=== PATIENT | male | born 1945 | race Caucasian/White ===

== ENCOUNTER → 2024-01-02 07:23 | Outpatient (REF) | payer MEDICARE, OTHER, SELFPAY ==
[2024-01-02 08:11] LABS: % Basophils 0.9 % (0-2); % Eosinophils 4.1 % (0-6); % Immature Granulocytes 0.3 % (0-0.5); % Lymphocytes 44.3 % (20.5-51.1); % Monocytes 9.2 % (1.7-9.3); % Neutrophils 41.2 % (42.2-75.2); Absolute Basophils 0.1 10^3/uL (0-0.2); Absolute Eosinophils 0.3 10^3/uL (0-0.7); Absolute Lymphocytes 2.9 10^3/uL (1.2-3.4); Absolute Monocytes 0.6 10^3/uL (0.1-0.6); Absolute Neutrophils 2.7 10^3/uL (1.4-6.5); Hematocrit 41.4 % (39.0-52.0); Hemoglobin 13.9 g/dL (13.0-18.0); Mean Corp Hgb Conc. 33.6 g/dL (33.0-37.0); Mean Corpuscular Hgb 30.5 pg (27.0-31.0); Mean Corpuscular Volume 90.8 fL (80.0-94.0); Mean Platelet Volume 10.6 fL (7.4-10.4); Nucleated Red Blood Cells % 0 % (-); Platelet Count 226 10^3/uL (130-400); Red Blood Cell Count 4.56 10^6/uL (4.70-6.10); Red Cell Dist. Width 13.2 % (11.5-14.5); White Blood Cell Count 6.6 10^3/uL (4.8-10.8)
[2024-01-02 08:41] LABS: ALT (SGPT) 19 U/L (0-50); AST (SGOT) 24 U/L (17-59); Albumin 4.3 g/dl (3.5-5.0); Alkaline Phosphatase 57 U/L (38-126); Blood Urea Nitrogen 18 mg/dl (9-20); Calcium 9.5 mg/dl (8.4-10.2); Carbon Dioxide 28 mmol/L (22-30); Chloride 105 mmol/L (98-107); Glucose 95 mg/dl (70-99); HDL Cholesterol 59 mg/dl; LDL Cholesterol, Calculated 73 mg/dl; Potassium 4.5 mmol/L (3.5-5.1); Sodium 137 mmol/L (135-145); Total Bilirubin 0.8 mg/dl (0.2-1.3); Total Cholesterol 146 mg/dl (50-199); Total Protein 7.1 g/dl (6.3-8.2); Triglyceride 72 mg/dl (10-149); Very Low Density Lipoprotein 14 mg/dl (0-30); eGFR > 60.00
[2024-01-02 09:21] LABS: PSA, Total - Screen 4.42 ng/ml (0.0-4.0); TSH Reflex To Free T4 1.57 uIU/ml (0.47-4.68)
== END ==
LOC: REG 07:23
PROVIDERS: ATTENDING PHYSICIAN Internal Medicine
DX: E78.5 Hyperlipidemia, unspecified (principal); Z68.27 Body mass index [BMI] 27.0-27.9, adult; R53.83 Other fatigue; Z12.5 Encounter for screening for malignant neoplasm of prostate
CPT/HCPCS: 36415; 80053; 80061; 84443; 85025; G0103

== ENCOUNTER 2024-01-23 13:47 | Emergency (ER) | payer MEDICARE, OTHER, SELFPAY ==
[2024-01-23 13:54] VITALS: BP 147/79
[2024-01-23 14:14] LABS: % Basophils 0.8 % (0-2); % Immature Granulocytes 0.1 % (0-0.5); % Lymphocytes 40.8 % (20.5-51.1); % Monocytes 7.1 % (1.7-9.3); % Neutrophils 49.2 % (42.2-75.2); Absolute Basophils 0.1 10^3/uL (0-0.2); Absolute Eosinophils 0.2 10^3/uL (0-0.7); Absolute Lymphocytes 3.1 10^3/uL (1.2-3.4); Absolute Monocytes 0.5 10^3/uL (0.1-0.6); Absolute Neutrophils 3.8 10^3/uL (1.4-6.5); Hematocrit 39.7 % (39.0-52.0); Hemoglobin 13.6 g/dL (13.0-18.0); Mean Corp Hgb Conc. 34.3 g/dL (33.0-37.0); Mean Corpuscular Hgb 30.8 pg (27.0-31.0); Mean Platelet Volume 10.2 fL (7.4-10.4); Nucleated Red Blood Cells % 0 % (-); Platelet Count 231 10^3/uL (130-400); Red Blood Cell Count 4.41 10^6/uL (4.70-6.10); Red Cell Dist. Width 13.2 % (11.5-14.5); White Blood Cell Count 7.7 10^3/uL (4.8-10.8)
[2024-01-23 14:28] LABS: ALT (SGPT) 19 U/L (0-50); AST (SGOT) 27 U/L (17-59); Albumin 4.3 g/dl (3.5-5.0); Alkaline Phosphatase 51 U/L (38-126); Blood Urea Nitrogen 15 mg/dl (9-20); Calcium 9.3 mg/dl (8.4-10.2); Carbon Dioxide 27 mmol/L (22-30); Chloride 103 mmol/L (98-107); Glucose 112 mg/dl (70-99); Potassium 3.9 mmol/L (3.5-5.1); Sodium 135 mmol/L (135-145); Total Bilirubin 0.6 mg/dl (0.2-1.3); Total Protein 7.3 g/dl (6.3-8.2); eGFR > 60.00
[2024-01-23 14:36] LABS: Troponin I < 0.012 ng/ml
[2024-01-23 15:54] VITALS: BP 142/71
[2024-01-23 16:00] VITALS: BP 135/74
--- NOTE | 2024-01-23 16:12 | ED.GENMED ---
History of Present Illness
General
Chief Complaint: Chest Problem
Source: patient
Exam Limitations: none
Time Seen by Provider: 01/23/24 16:11
Nursing documentation reviewed up to this point in time: agreed with
Travel History
Have you had any contact with someone who has COVID-19?: No
Do you have any symptoms of coronavirus? Fever > 100 degrees, chills, cough, shortness of breath, sore throat, loss of taste or smell, muscle aches, or headache?: No
History of Present Illness
History of Present Illness:
78-year-old male presents emerged part complaining of a chest pressure/tightness on the left side at 10:30 AM. He was sitting down and began experiencing the chest tightness. He states it has been gradually going away. He was at senior care
visiting his and was directed to the emergency department. He denies any cardiac history. He has never seen a anchorman.
Past History
Past History
ED Past Medical History: Hypercholesterolemia
ED Past Surgical History: Orthopedic
Social History
Tobacco: Non-smoker
Alcohol: Daily
Drug: None
Personal:
Living: alone
Review of Systems
Review of Systems
Allergies reviewed?: Yes
All Other Systems: Not applicable
Constitutional: Reports no symptoms
EENT: Reports no symptoms
Respiratory: Reports no symptoms
Cardiac: Reports chest pain
ABD/GI: Reports no symptoms
: Reports no symptoms
Musculoskeletal: Reports no symptoms
Skin: Reports no symptoms
Neurological: Reports no symptoms
Endocrine: Reports no symptoms
Hematologic/Lymphatic: Reports no symptoms
Psychiatric: Reports no symptoms
Phy Exam
Physical Exam
Physical Exam:
Physical Exam
General: no apparent distress, not acutely ill
Neck: supple. no meningeal signs. normal posterior pharynx
Heart: s1/s2 regular rate and rhythm, no murmur. equal radial
pulses.
HEENT: Pupils equal round reactive to light, EOMI
Lungs: no acute respiratory distress. clear bilaterally
Abdomen: normal bowel sounds. not tender. no CVAT
Neuro: alert and oriented. no focal neurological deficits cranial nerves II through XII intact
Skin: no rash
Psychiatric: well kept. interactive and cooperative
Extremities: no edema. no calf tenderness. negative homans. good distal pulses
Scores
Heart Score for Chest Pain Patients
STEMI patient?: No
History: Slightly or Non-Suspicious
ECG: Normal
Age: >/= 65 years
Risk Factors: 1 or 2 Risk Factors
Troponin: </= Normal Limit
Heart Score for Chest Pain Patients: 3
Heart Score Risk: 2.5% MACE over next 6 weeks
Course
Orders/Labs/Results
Orders:
Orders
01/23/24 14:00
Electrocardiogram (*1) Urgent
Reason for Study: Chest Pain
EKG- Treatment ONCE
01/23/24 14:07
Complete Blood Count/With Diff Urgent
Comprehensive Metabolic Panel Urgent
Troponin I Urgent
01/23/24 17:14
Troponin I Urgent
Abnormal Lab Results
01/23/24
14:07
RBC 4.41 L 10^6/uL
(4.70-6.10)
Glucose 112 H mg/dl
(70-99)
01/23/24 14:07
01/23/24 14:07
Vital Signs
Initial and Last Documented VS:
Initial Vital Signs
Temp Pulse Resp BP Pulse Ox
98.2 F 93 16 147/79 97
01/23/24 13:54 01/23/24 13:54 01/23/24 13:54 01/23/24 13:54 01/23/24 13:54
Last Documented Vital Signs
Temp Pulse Resp BP Pulse Ox
98.2 F 72 14 152/75 96
01/23/24 13:54 01/23/24 17:13 01/23/24 17:13 01/23/24 18:14 01/23/24 18:15
MDM/Problems Addressed
Differential Diagnosis Includes:
ACS, PE
MDM/Problems Addressed:
78-year-old male with chest discomfort, do not suspect ACS or PE. Serial troponins negative. Symptoms resolved. Will discharge patient to follow-up with cardiology. Return precautions given.
Chronic conditions affecting care: Other (Hyperlipidemia)
*Pulse Oximetry
Patient hypoxic: no
*EKG
Interpreted by ED Provider?: Yes
EKG Intrepretation Date: 01/23/24
EKG Intrepretation Time: 14:02
Interpretation: normal
Comparison EKG: no changes
Heart Rate: 74
Rate: normal
Rhythm: sinus
[place]: normal axis
Interval: normal interval
QRS Pattern: normal QRS
Ischemia: no ischemia
*Hip Hop Performers Interpretation
Rate: normal
Interpretation: normal
Heart Rate: 72
Rhythm: sinus
*Critical Care Note
Total Time (30-74mins, 75-104mins- exclusive of procedures): Not Applicable
Patient Management
Social determinants of health affecting care: Living situation and Strong social support
Escalation/DeEscalation of care consider admission/obs:
Admit not indicated
ED Attending Note
-
Portions of this chart may have been created with voice recognition software.� Occasional wrong word or��sound alike� substitutions may have occurred due to the inherent limitations of voice recognition software.
Discharge Plan
Departure
Patient Disposition: Home (Routine Discharge)
Date of Disposition: 01/23/24
Time of Disposition: 18:04
Patient with high blood pressure during this ER visit?: Yes
Condition: Good
Discharge Problem:
Chest pain
Instructions: Chest Pain CBC Follow Up, BLOOD PRESSURE
Prescriptions:
No Action
multivitamin 1 EACH tablet
1 ea PO HS
simvastatin 10 MG tablet
10 mg PO HS
sennosides [senna] 1 TABLET tablet
2 tab PO BID 0RF
acetaminophen 325 MG tablet
650 mg PO Q6H 0RF
aspirin 325 MG tablet,delayed release (DR/EC)
325 mg PO DAILY 0RF
docusate sodium 100 MG capsule
100 mg PO BID 0RF
mupirocin 1 APPLIC ointment
1 swab intranasal BID 0RF
alum-mag hydroxide-simeth [Mag-Al Plus] 30 ML suspension
30 ml PO Q4HPRN PRN (Reason: indigestion) 0RF
oxycodone 5 MG tablet
5 mg PO Q4HPRN PRN (Reason: mild pain) 0RF
Referrals:
Lauren Coburn MD [Family Provider] -
Interventions
Interventions:
*Risk Screen - Suicide Last Done: 01/23/24 17:17
*General Assessment Last Done: 01/23/24 17:17
*Neglect/Abuse Screening Last Done: 01/23/24 17:17
ED- Fall Risk Assessment Last Done: 01/23/24 18:32
*ED COVID-19 Vaccine History Last Done: 01/23/24 13:54
*Nursing Disposition Last Done: 01/23/24 18:32
ED- Cardiac Assessment Last Done: 01/23/24 17:16
ED- Pulmonary Assessment Last Done: 01/23/24 17:16
Discharge Date and Time
Discharge Date/Time: 01/23/24 18:33
[2024-01-23 17:00] VITALS: BP 120/50
[2024-01-23 17:46] LABS: Troponin I < 0.012 ng/ml
[2024-01-23 18:14] VITALS: BP 152/75
== END 2024-01-23 18:33 | disposition home or self-care (01) ==
LOC: EMR 13:47
PROVIDERS: Emergency Medicine; EMERGENCY PHYSICIAN Emergency Medicine; FAMILY PHYSICIAN Internal Medicine
DX: R07.89 Other chest pain (principal); E78.00 Pure hypercholesterolemia, unspecified
CPT/HCPCS: 99283; 80053; 84484; 85025; 93005

== ENCOUNTER → 2024-02-16 07:39 | Outpatient (REF) | payer MEDICARE, OTHER, SELFPAY | LOC: RCS 07:39 | PROVIDERS: ATTENDING PHYSICIAN Internal Medicine Cardiovascular Disease; FAMILY PHYSICIAN Internal Medicine | DX: R07.2 Precordial pain (principal) | CPT/HCPCS: 93017 ==

== ENCOUNTER → 2024-02-17 12:59 | Outpatient (REF) | payer MEDICARE, OTHER, SELFPAY | LOC: MRI 3T 12:59 | PROVIDERS: ATTENDING PHYSICIAN Surgery; FAMILY PHYSICIAN Internal Medicine | DX: R97.20 Elevated prostate specific antigen [PSA] (principal) | CPT/HCPCS: 72197; A9575 ==

== ENCOUNTER → 2024-03-09 08:09 | Outpatient (REF) | payer MEDICARE, OTHER, SELFPAY | LOC: DHCBC MAIN 08:09 | PROVIDERS: ATTENDING PHYSICIAN Internal Medicine Cardiovascular Disease; FAMILY PHYSICIAN Internal Medicine | DX: R07.2 Precordial pain (principal) | CPT/HCPCS: 93306 ==

== ENCOUNTER → 2024-03-16 10:00 | Outpatient (REF) | payer MEDICARE, OTHER, SELFPAY | LOC: CLAB 10:00 | PROVIDERS: ATTENDING PHYSICIAN Surgery | DX: R97.20 Elevated prostate specific antigen [PSA] (principal) | CPT/HCPCS: 88305; 88344 ==

== ENCOUNTER → 2024-03-19 09:21 | Outpatient (REF) | payer MEDICARE, OTHER, SELFPAY ==
[2024-03-19 14:16] LABS: C-Reactive Protein < 5.00 mg/L (0.0-10.00)
== END ==
LOC: REG 09:21
PROVIDERS: ATTENDING PHYSICIAN Internal Medicine Cardiovascular Disease; FAMILY PHYSICIAN Internal Medicine
DX: R07.2 Precordial pain (principal)
CPT/HCPCS: 36415; 86140

== ENCOUNTER 2024-04-14 09:40 | Emergency (ER) | payer MEDICARE, OTHER, SELFPAY ==
[2024-04-14 09:50] VITALS: BP 134/84
--- NOTE | 2024-04-14 11:08 | ED.GENMED ---
History of Present Illness
General
Chief Complaint: Anxiety
Source: patient and family (Son)
Exam Limitations: none
Time Seen by Provider: 04/14/24 10:15
Nursing documentation reviewed up to this point in time: agreed with
Travel History
Have you had any contact with someone who has COVID-19?: No
Do you have any symptoms of coronavirus? Fever > 100 degrees, chills, cough, shortness of breath, sore throat, loss of taste or smell, muscle aches, or headache?: No
History of Present Illness
History of Present Illness:
The patient is a 79-year-old man who reports extreme anxiety, primarily related to caring for his who is paralyzed on one side due to a stroke that she had 1 year ago. His son reports that she has not been progressing and can barely walk.
This has caused tremendous stress to the patient. The patient reports that for months, he was up helping his at night, sometimes taking her to the bathroom 10 times per night, leading him to be extremely exhausted. Additionally, the patient
was recently diagnosed this past January with prostate cancer and is due to meet with a radiation oncologist in the next few days. The patient reports that he is at the point that he cannot function anymore and keeps repeating over and over ' I need
help'. He reports that his anxiety is paralyzing. His son reports that they have a family friend that comes to the home very frequently to keep the patient's company. In addition, he recently hired an aide to sleep over the house every night
to help his . Despite this, the patient reports that he still cannot get rid of his anxiety. He reports that he feels helpless, hopeless and does not feel he is able to go home due to feeling so upset emotionally and mentally. His son reports
that he lives in [place] so cannot help on a frequent basis. The patient denies all drugs and alcohol. He does not smoke cigarettes. The patient was recently started on 10 mg of Lexapro about 5 days ago. In addition, he was given Ativan as needed
for sleep and anxiety. His son feels that even of the Ativan is helping him sleep a little better, that overall is just making anxiety worse.
Past History
Past History
ED Past Medical History: Cancer (Prostate cancer) and Hypercholesterolemia
ED Past Surgical History: Orthopedic
Social History
Tobacco: Non-smoker
Alcohol: None
Drug: None
Personal:
Living: with family
Employment: Retired
Family History
Family History: Other
Review of Systems
Review of Systems
Allergies reviewed?: Yes
Other source history: family
All Other Systems: ROS reviewed and negative except as documented in HPI and ROS
Constitutional: Reports fatigue and sleep disturbance
EENT: Reports no symptoms
Respiratory: Reports no symptoms
ABD/GI: Reports anorexia
: Reports no symptoms
Musculoskeletal: Reports no symptoms
Skin: Reports no symptoms
Neurological: Reports no symptoms
Endocrine: Reports no symptoms
Hematologic/Lymphatic: Reports no symptoms
Psychiatric: Reports depression, anxiety and suicidal (No specific suicidal plan but at times feels like he wants to end his life)
Phy Exam
Physical Exam
Physical Exam:
Physical Exam
General: Patient appears to be tired and depressed. Flat affect
Neck: supple. no meningeal signs. normal psoterior pharynx
Heart: s1/s2 regular rate and rhythm, no murmur. equal radial pulses.
Lungs: no acute respiratory distress. clear bilaterally
Abdomen: normal bowel sounds. not tender. no CVAT
Neuro: alert and oriented. no focal neurological deficits
Skin: no rash
Psychiatric: well kept. interactive and cooperative
Extremities: no edema. no calf tenderness. negative homans. good distal pulses
Course
Orders/Labs/Results
Orders:
Orders
04/14/24 10:48
Urine Drug Abuse Screen Urgent
Date Specimen was Collected: 04/14/24
Time Specimen was Collected: 10:56
04/14/24 10:49
Urinalysis Reflex To Culture Urgent
Date Specimen was Collected: 04/14/24
Time Specimen was Collected: 10:56
04/14/24 11:03
Crisis Consult Urgent
Reason for Consult: severe anxiety and depression- does not want to go home
04/14/24 11:33
Alcohol Urgent
Complete Blood Count/With Diff Urgent
Comprehensive Metabolic Panel Urgent
Abnormal Lab Results
04/14/24
11:33
RBC 4.58 L 10^6/uL
(4.70-6.10)
Glucose 102 H mg/dl
(70-99)
04/14/24 11:33
04/14/24 11:33
Vital Signs
Initial and Last Documented VS:
Initial Vital Signs
Temp Pulse Resp BP Pulse Ox
98.2 F 82 20 134/84 100
04/14/24 09:50 04/14/24 09:50 04/14/24 09:50 04/14/24 09:50 04/14/24 09:50
Last Documented Vital Signs
Temp Pulse Resp BP Pulse Ox
98.2 F 82 20 134/84 100
04/14/24 09:50 04/14/24 09:50 04/14/24 09:50 04/14/24 09:50 04/14/24 09:50
MDM/Problems Addressed
Differential Diagnosis Includes:
Major depression episode, acute on chronic anxiety, dehydration, failure to thrive
MDM/Problems Addressed:
Patient presents with acute on chronic anxiety and severe depression
Chronic conditions affecting care: Cancer
Acute Exacerbation and/or Progression of Chronic Illness: Cancer
*Pulse Oximetry
Patient hypoxic: no
*Profile Grinder Interpretation
Rate: normal
Interpretation: normal
Rhythm: sinus
*Critical Care Note
Total Time (30-74mins, 75-104mins- exclusive of procedures): Not Applicable
Data Reviewed
Review of Other/Old Records Reveals: Radiology Studies (Recent MRI shows signs that are concerning for prostate malignancy)
Source: patient and family (Patient's son who is at the bedside)
Patient Management
Discussion with other providers: Other (grab jack worker consulted and came to the bedside to evaluate patient)
Update Note
Update Note:
2:00 PM patient reports he feels more hopeful. He adamantly does not want to stay in inpatient psychiatric facility. He reports that he feels safe at home and denies homicidal and suicidal thoughts. Son reports that he could stay with him as long
as it takes until he feels better. Patient reports that he is due seen to see his therapist. I did talk to psychiatry, Dr. Shaw found over the phone who recommended 7.5 mg of Remeron 30 minutes before bedtime because the patient reports that
sleeping at night has become extremely difficult for him.
ED Attending Note
-
Portions of this chart may have been created with voice recognition software.� Occasional wrong word or��sound alike� substitutions may have occurred due to the inherent limitations of voice recognition software.
Discharge Plan
Departure
Patient Disposition: Home (Routine Discharge)
Date of Disposition: 04/14/24
Time of Disposition: 14:33
Patient with high blood pressure during this ER visit?: Yes
Condition: Good
Discharge Problem:
Anxiety, generalized
Instructions: Generalized Anxiety Disorder (DC)
Prescriptions:
New
mirtazapine [Remeron] 15 mg tablet
7.5 mg PO HS Qty: 30 0RF
Rx Instructions:
Take 30 minutes before bedtime
No Action
multivitamin 1 EACH tablet
1 ea PO HS
simvastatin 10 MG tablet
10 mg PO HS
sennosides [senna] 1 TABLET tablet
2 tab PO BID 0RF
acetaminophen 325 MG tablet
650 mg PO Q6H 0RF
aspirin 325 MG tablet,delayed release (DR/EC)
325 mg PO DAILY 0RF
docusate sodium 100 MG capsule
100 mg PO BID 0RF
mupirocin 1 APPLIC ointment
1 swab intranasal BID 0RF
alum-mag hydroxide-simeth [Mag-Al Plus] 30 ML suspension
30 ml PO Q4HPRN PRN (Reason: indigestion) 0RF
oxycodone 5 MG tablet
5 mg PO Q4HPRN PRN (Reason: mild pain) 0RF
Referrals:
Lauren Coburn MD [Family Provider] -
Activity Restrictions/Additional Instructions:
Take 7.5 mg of Remeron 30 minutes before bedtime. Please do not mix the Remeron and lorazepam within 4 hours of each other. Please let your primary care doctor and therapist know that you have been started on Remeron.
Interventions
Interventions:
*Risk Screen - Suicide Last Done: 04/14/24 09:50
*General Assessment Last Done: 04/14/24 09:50
*Neglect/Abuse Screening Last Done: 04/14/24 09:50
ED-Psychological Assessment Last Done: 04/14/24 10:41
Discharge Date and Time
Print Language: SYRIAC
[2024-04-14 12:09] LABS: % Basophils 0.5 % (0-2); % Eosinophils 0.4 % (0-6); % Immature Granulocytes 0.3 % (0-0.5); % Lymphocytes 26.9 % (20.5-51.1); % Neutrophils 63.9 % (42.2-75.2); Absolute Monocytes 0.6 10^3/uL (0.1-0.6); Absolute Neutrophils 4.7 10^3/uL (1.4-6.5); Hematocrit 39.3 % (39.0-52.0); Hemoglobin 14.2 g/dL (13.0-18.0); Mean Corp Hgb Conc. 36.1 g/dL (33.0-37.0); Mean Corpuscular Volume 85.8 fL (80.0-94.0); Mean Platelet Volume 10.3 fL (7.4-10.4); Nucleated Red Blood Cells % 0 % (-); Platelet Count 234 10^3/uL (130-400); Red Blood Cell Count 4.58 10^6/uL (4.70-6.10); Red Cell Dist. Width 12.9 % (11.5-14.5); White Blood Cell Count 7.3 10^3/uL (4.8-10.8)
[2024-04-14 12:15] LABS: ALT (SGPT) 41 U/L (0-50); AST (SGOT) 29 U/L (17-59); Albumin 4.1 g/dl (3.5-5.0); Alkaline Phosphatase 62 U/L (38-126); Blood Urea Nitrogen 15 mg/dl (9-20); Calcium 9.9 mg/dl (8.4-10.2); Carbon Dioxide 24 mmol/L (22-30); Chloride 105 mmol/L (98-107); Glucose 102 mg/dl (70-99); Potassium 3.9 mmol/L (3.5-5.1); Sodium 137 mmol/L (135-145); Total Bilirubin 0.7 mg/dl (0.2-1.3); eGFR > 60.00
[2024-04-14 12:17] LABS: Alcohol None Detected
[2024-04-14 13:00] VITALS: BP 126/64
== END 2024-04-14 14:30 | disposition home or self-care (01) ==
LOC: EMR 09:40
PROVIDERS: EMERGENCY PHYSICIAN Emergency Medicine; FAMILY PHYSICIAN Internal Medicine
DX: F41.1 Generalized anxiety disorder (principal); Z73.3 Stress, not elsewhere classified; R03.0 Elevated blood-pressure reading, without diagnosis of hypertension; C61 Malignant neoplasm of prostate; R45.851 Suicidal ideations; R53.83 Other fatigue; F32.A Depression, unspecified; E78.00 Pure hypercholesterolemia, unspecified; Z79.82 Long term (current) use of aspirin
CPT/HCPCS: 99283; 80053; 82077; 85025

== ENCOUNTER 2024-04-22 11:36 | Emergency (ER) | payer MEDICARE, OTHER, SELFPAY ==
[2024-04-22 11:38] VITALS: BP 126/77
[2024-04-22 12:16] LABS: Urine Albumin Trace (Neg - Trace); Urine Bilirubin Negative (Negative); Urine Character Clear (Clear); Urine Color Yellow; Urine Glucose Negative (Negative); Urine Ketone Negative (Negative); Urine Leukocyte Trace (Negative); Urine Nitrite Negative (Negative); Urine Occult Blood 4+ (Negative); Urine Urobilinogen Negative (Neg - 1+); Urine pH 6.5 (5.0-9.0)
--- NOTE | 2024-04-22 12:25 | ED.GENMED ---
History of Present Illness
General
Chief Complaint: Male Genito-Urinary Symptoms
Source: patient
Exam Limitations: none
Time Seen by Provider: 04/22/24 12:16
Travel History
Have you had any contact with someone who has COVID-19?: No
Do you have any symptoms of coronavirus? Fever > 100 degrees, chills, cough, shortness of breath, sore throat, loss of taste or smell, muscle aches, or headache?: No
History of Present Illness
History of Present Illness:
See MDM
Past History
Past History
ED Past Medical History: Cancer (Prostate cancer) and Hypercholesterolemia
ED Past Surgical History: Orthopedic
Social History
Tobacco: Non-smoker
Alcohol: None
Drug: None
Personal:
Living: with family
Employment: Retired
Family History
Family History: Other
Phy Exam
Physical Exam
Physical Exam:
See MDM
Course
Orders/Labs/Results
Orders:
Orders
04/22/24 11:44
Urinalysis Reflex To Culture Urgent
Date Specimen was Collected: 04/22/24
Time Specimen was Collected: 11:42
Urine Microscopic Reflex Cult Urgent
04/22/24 12:34
MR Lumbar W/o & With Contrast Urgent
Comment:
Reason For Exam: porstate cancer, urinary incontinence
Recent pill cam endoscopy?: No
04/22/24 12:39
Complete Blood Count/With Diff Urgent
Comprehensive Metabolic Panel Urgent
Abnormal Lab Results
04/22/24 04/22/24
11:44 12:39
RBC 4.26 L 10^6/uL
(4.70-6.10)
Hct 37.5 L %
(39.0-52.0)
MCH 31.5 H pg
(27.0-31.0)
Absolute Monos (auto) 0.9 H 10^3/uL
(0.1-0.6)
Monocytes % 9.4 H %
(1.7-9.3)
Sodium 132 L mmol/L
(135-145)
Ur Occult Blood Reflex 4+ A
(Negative)
Leukocyte Esterase Rfl Trace A
(Negative)
Urine RBC 40-50 A /HPF
(0-2)
Urine Bacteria (Reflex) Few A
(Negative)
04/22/24 12:39
04/22/24 12:39
Vital Signs
Initial and Last Documented VS:
Initial Vital Signs
Temp Pulse Resp BP Pulse Ox
97.9 F 72 16 126/77 100
04/22/24 11:38 04/22/24 11:38 04/22/24 11:38 04/22/24 11:38 04/22/24 11:38
Last Documented Vital Signs
Temp Pulse Resp BP Pulse Ox
97.9 F 75 16 119/68 96
04/22/24 11:38 04/22/24 15:04 04/22/24 15:04 04/22/24 15:04 04/22/24 15:04
MDM/Problems Addressed
Differential Diagnosis Includes:
HPI and MDM Narrative:
79-year-old male presenting for evaluation of bladder incontinence. Patient was recently diagnosed with prostate cancer and is pending the start of treatment. Patient was lying down on the couch today and he noted that he started urinating on
himself. He was unable to stop it. He has developed incontinence every 20 or 30 minutes. He did go to urgent care and he was sent to the emergency department for further evaluation. Patient denies any back pain. He denies trouble defecating and
denies trouble walking. Patient states he otherwise feels like his normal self
Given the incontinence every 20 or 30 minutes is concerning for overflow incontinence. I did a rectal exam and patient has good rectal tone. He is ambulating without difficulty.
Physical exam
General: Well appearing and non-toxic
HEENT: protecting airway
Neck: appears supple
CV: No evidence of cyanosis
Resp: No accessory muscle use
Abd: Non-distended. Soft and nontender
Rectal: Good rectal tone
Extremities: No deformities
Neuro: alert
Psych: Normal affect
Skin: Intact
Problems Addressed including Acute and Chronic Conditions affecting care:
1. Urinary incontinence
Acuity: acute
Prognosis: stable
Details: Likely in the setting of overflow incontinence. Patient has good rectal tone making spinal cord pathology less likely
Updates
12:35 PM bladder scan only shows 118 mL. Case discussed with radiology and will call an MRI team to rule out cauda equina syndrome
5 PM on reassessment, patient states he has had multiple normal urination episodes. He has the sensation to go to the bathroom now and is no longer incontinent. Urine shows hematuria evidence of infection. We discussed following up with his
urologist and possible diagnosis of bladder spasm. MRI negative for spinal cord issue or metastatic disease to his lumbar bones
Differential Diagnosis (but not limited to): Overflow incontinence, cauda equina syndrome, UTI
Testing considered: Lumbar x-ray
Drug therapy (if applicable): OTC meds, please see d/c instruction regarding Rx drugs
Amount and/or Complexity of Data Reviewed
Clinical info obtained from: Patient
External data reviewed: N/A
Labs I independently reviewed (but not limited to): White blood cell count normal
Radiology: MRI report reviewed
Pulse Ox: not hypoxic
EKG independently reviewed: N/A
Agency Manager: N/A
Critical Care: N/A
Risk of Complication:
Social Determinants of health: Good social support
Discussed with other providers: N/A
Escalation of Care includes Admit/Obs: After being observed in the Emergency Department, pt stable for discharge.
Occasional wrong word or 'sound a like' substitutions may have occurred due to the inherent limitations of voice recognition software. Read the chart carefully and recognize, using context, where substitutions have occurred.
*Critical Care Note
Total Time (30-74mins, 75-104mins- exclusive of procedures): Not Applicable
ED Attending Note
-
Portions of this chart may have been created with voice recognition software.� Occasional wrong word or��sound alike� substitutions may have occurred due to the inherent limitations of voice recognition software.
Discharge Plan
Departure
Patient Disposition: Home (Routine Discharge)
Date of Disposition: 04/22/24
Time of Disposition: 17:05
Patient with high blood pressure during this ER visit?: No
Discharge Problem:
Incontinence, Hematuria
Prescriptions:
No Action
multivitamin 1 EACH tablet
1 ea PO HS
simvastatin 10 MG tablet
10 mg PO HS
sennosides [senna] 1 TABLET tablet
2 tab PO BID 0RF
acetaminophen 325 MG tablet
650 mg PO Q6H 0RF
aspirin 325 MG tablet,delayed release (DR/EC)
325 mg PO DAILY 0RF
docusate sodium 100 MG capsule
100 mg PO BID 0RF
mupirocin 1 APPLIC ointment
1 swab intranasal BID 0RF
alum-mag hydroxide-simeth [Mag-Al Plus] 30 ML suspension
30 ml PO Q4HPRN PRN (Reason: indigestion) 0RF
oxycodone 5 MG tablet
5 mg PO Q4HPRN PRN (Reason: mild pain) 0RF
mirtazapine [Remeron] 15 mg tablet
7.5 mg PO HS Qty: 30 0RF
Rx Instructions:
Take 30 minutes before bedtime
Referrals:
Lauren Coburn MD [Family Provider] -
Activity Restrictions/Additional Instructions:
Please return for any worsening symptoms.
You may return at any time if you have further concerns.
Please follow up with your urologist at the first available appointment, preferably this week. Please explain the you had incontinence that self resolved. We did find blood in your urine but there is no evidence of infection. We performed an
MRI of your back which showed no spinal cord issue and no metastatic disease to the bone.
Thank you for choosing [facility].
Interventions
Interventions:
*Risk Screen - Suicide Last Done: 04/22/24 15:34
*General Assessment Last Done: 04/22/24 15:34
*Neglect/Abuse Screening Last Done: 04/22/24 15:34
ED- Fall Risk Assessment Last Done: 04/22/24 15:34
*ED COVID-19 Vaccine History Last Done: 04/22/24 11:38
ED-Male Genitourinary Assessment Last Done: 04/22/24 12:45
Discharge Date and Time
Print Language: CROAT[place]
[2024-04-22 12:44] LABS: Urine Bacteria Few (Negative); Urine Red Blood Cell 40-50 /HPF (0-2); Urine Squamous Cell 0-2 /LPF (Few)
[2024-04-22 12:55] LABS: % Basophils 0.6 % (0-2); % Eosinophils 2.4 % (0-6); % Immature Granulocytes 0.2 % (0-0.5); % Lymphocytes 25.4 % (20.5-51.1); % Monocytes 9.4 % (1.7-9.3); Absolute Basophils 0.1 10^3/uL (0-0.2); Absolute Eosinophils 0.2 10^3/uL (0-0.7); Absolute Lymphocytes 2.3 10^3/uL (1.2-3.4); Absolute Monocytes 0.9 10^3/uL (0.1-0.6); Absolute Neutrophils 5.6 10^3/uL (1.4-6.5); Hematocrit 37.5 % (39.0-52.0); Hemoglobin 13.4 g/dL (13.0-18.0); Mean Corp Hgb Conc. 35.7 g/dL (33.0-37.0); Mean Corpuscular Hgb 31.5 pg (27.0-31.0); Nucleated Red Blood Cells % 0 % (-); Platelet Count 232 10^3/uL (130-400); Red Blood Cell Count 4.26 10^6/uL (4.70-6.10); Red Cell Dist. Width 13.2 % (11.5-14.5); White Blood Cell Count 9.1 10^3/uL (4.8-10.8)
[2024-04-22 13:02] LABS: ALT (SGPT) 24 U/L (0-50); AST (SGOT) 22 U/L (17-59); Albumin 3.9 g/dl (3.5-5.0); Alkaline Phosphatase 52 U/L (38-126); Blood Urea Nitrogen 18 mg/dl (9-20); Calcium 9.8 mg/dl (8.4-10.2); Carbon Dioxide 28 mmol/L (22-30); Chloride 98 mmol/L (98-107); Glucose 93 mg/dl (70-99); Potassium 4.4 mmol/L (3.5-5.1); Sodium 132 mmol/L (135-145); Total Bilirubin 0.5 mg/dl (0.2-1.3); Total Protein 6.7 g/dl (6.3-8.2); eGFR > 60.00
[2024-04-22 15:04] VITALS: BP 119/68; BMI 23.0
== END 2024-04-22 17:12 | disposition home or self-care (01) ==
LOC: EMR 11:36
PROVIDERS: Emergency Medicine; EMERGENCY PHYSICIAN Student in an Organized Health Care Education/Training Program; FAMILY PHYSICIAN Internal Medicine
DX: R31.9 Hematuria, unspecified (principal); R32 Unspecified urinary incontinence; C61 Malignant neoplasm of prostate; E78.00 Pure hypercholesterolemia, unspecified; Z79.82 Long term (current) use of aspirin
CPT/HCPCS: 99284; 51798; 72158; 80053; 81003; 81015; 85025; A9575

== ENCOUNTER → 2024-04-26 09:23 | Outpatient (REF) | payer MEDICARE, OTHER, SELFPAY ==
[2024-04-26 18:42] LABS: Urine Albumin Negative (Neg - Trace); Urine Bilirubin Negative (Negative); Urine Character Clear (Clear); Urine Color Yellow; Urine Glucose Negative (Negative); Urine Ketone Negative (Negative); Urine Leukocyte Negative (Negative); Urine Nitrite Negative (Negative); Urine Occult Blood Negative (Negative); Urine Specific Gravity 1.015 (<1.030); Urine Urobilinogen Negative (Neg - 1+); Urine pH 6.5 (5.0-9.0)
== END ==
LOC: CLAB 09:23
PROVIDERS: ATTENDING PHYSICIAN Surgery
DX: N39.0 Urinary tract infection, site not specified (principal)
CPT/HCPCS: 81003; 87086

== ENCOUNTER 2024-05-09 07:58 | Emergency (ER) | payer MEDICARE, OTHER, SELFPAY ==
[2024-05-09 08:01] VITALS: BP 151/96
[2024-05-09 09:26] LABS: % Basophils 0.7 % (0-2); % Eosinophils 3.5 % (0-6); % Immature Granulocytes 0.3 % (0-0.5); % Lymphocytes 22.7 % (20.5-51.1); % Monocytes 10.1 % (1.7-9.3); % Neutrophils 62.7 % (42.2-75.2); Absolute Basophils 0.1 10^3/uL (0-0.2); Absolute Eosinophils 0.3 10^3/uL (0-0.7); Absolute Lymphocytes 1.6 10^3/uL (1.2-3.4); Absolute Monocytes 0.7 10^3/uL (0.1-0.6); Absolute Neutrophils 4.5 10^3/uL (1.4-6.5); Hematocrit 41.1 % (39.0-52.0); Hemoglobin 14.3 g/dL (13.0-18.0); Mean Corp Hgb Conc. 34.8 g/dL (33.0-37.0); Mean Corpuscular Hgb 30.9 pg (27.0-31.0); Mean Corpuscular Volume 88.8 fL (80.0-94.0); Mean Platelet Volume 10.1 fL (7.4-10.4); Nucleated Red Blood Cells % 0 % (-); Platelet Count 243 10^3/uL (130-400); Red Blood Cell Count 4.63 10^6/uL (4.70-6.10); Red Cell Dist. Width 13.4 % (11.5-14.5); White Blood Cell Count 7.2 10^3/uL (4.8-10.8)
[2024-05-09 09:39] LABS: Urine Albumin Negative (Neg - Trace); Urine Bilirubin Negative (Negative); Urine Character Slightly Cloudy (Clear); Urine Color Yellow; Urine Glucose Negative (Negative); Urine Ketone Negative (Negative); Urine Leukocyte Trace (Negative); Urine Nitrite Negative (Negative); Urine Occult Blood Negative (Negative); Urine Urobilinogen Negative (Neg - 1+)
[2024-05-09 09:40] LABS: ALT (SGPT) 18 U/L (0-50); AST (SGOT) 20 U/L (17-59); Alkaline Phosphatase 62 U/L (38-126); Blood Urea Nitrogen 14 mg/dl (9-20); Calcium 9.4 mg/dl (8.4-10.2); Carbon Dioxide 26 mmol/L (22-30); Chloride 99 mmol/L (98-107); Glucose 97 mg/dl (70-99); Potassium 4.6 mmol/L (3.5-5.1); Sodium 133 mmol/L (135-145); Total Bilirubin 0.7 mg/dl (0.2-1.3); Total Protein 6.9 g/dl (6.3-8.2); eGFR > 60.00
[2024-05-09 09:47] LABS: Amphetamines Negative (Negative); Barbiturates Negative (Negative); Buprenorphine Negative (Negative)
[2024-05-09 09:48] LABS: Benzodiazepines Positive (Negative); Cocaine Negative (Negative); Marijuana Negative (Negative); Methadone Negative (Negative); Methamphetamines Negative (Negative); Opiates Negative (Negative); Phencyclidine Negative (Negative); Tricyclic Antidepressants Negative (Negative)
--- NOTE | 2024-05-09 09:56 | ED.GENMED ---
History of Present Illness
General
Chief Complaint: Crisis Evaluation
Source: patient
Time Seen by Provider: 05/09/24 08:31
Travel History
Have you had any contact with someone who has COVID-19?: No
Do you have any symptoms of coronavirus? Fever > 100 degrees, chills, cough, shortness of breath, sore throat, loss of taste or smell, muscle aches, or headache?: No
History of Present Illness
History of Present Illness:
79-year-old male with past medical history of prostate cancer, GERD, hyperlipidemia and anxiety presenting to the emergency department from [facility] for medical clearance after patient has been expressing suicidal thoughts without intent
or plan over the last 3 weeks. 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 He denies any physical concerns at this time. Denies any homicidal ideations, auditory visual hallucinations, drug or alcohol
use.
Past History
Past History
ED Past Medical History: Cancer (Prostate cancer), GERD and Hypercholesterolemia
ED Past Surgical History: Orthopedic
Social History
Tobacco: Non-smoker
Alcohol: None
Drug: None
Personal:
Living: with family
Employment: Retired
Family History
Family History: Other
Review of Systems
Review of Systems
All Other Systems: ROS reviewed and negative except as documented in HPI and ROS
Phy Exam
Physical Exam
Physical Exam:
GENERAL: Sleeping but easily arousable to voice. , in no apparent distress
EYE: conjunctiva clear
Head: Normocephalic atraumatic
NECK: Supple,
ENT: mmm.
LUNGS: no acute respiratory distress
NEUROLOGICAL: Alert and oriented
SKIN: Warm and dry, skin intact.
MUSCULOSKELETAL: well perfused.
PSYCH: Normal and appropriate interaction.
Scores
Heart Failure Risk
Heart Failure Risk Score: Not Applicable
Heart Score for Chest Pain Patients
STEMI patient?: Not applicable
Withdrawal Assessment of Alcohol
Withdrawal Assessment Completed?: Not applicable
Course
Orders/Labs/Results
Orders:
Orders
05/09/24 08:09
Crisis Consult Urgent
Reason for Consult: SI
1:1 Observation - Suicide/ Violent Behavior As Directed
05/09/24 09:13
Complete Blood Count/With Diff Urgent
Comprehensive Metabolic Panel Urgent
Drug Screen, Urine [Urine Drug Abuse Screen] Urgent
Date Specimen was Collected: 05/09/24
Time Specimen was Collected: 09:10
Fentanyl, Urine Urgent
Urinalysis Reflex To Culture Urgent
Date Specimen was Collected: 05/09/24
Time Specimen was Collected: 09:10
Urine Microscopic Reflex Cult Urgent
05/09/24 09:23
Add On- LAB Urgent
Comments:: urine
Tests Added?: UA REFLEX TO CULTURE
Abnormal Lab Results
05/09/24
09:13
RBC 4.63 L 10^6/uL
(4.70-6.10)
Absolute Monos (auto) 0.7 H 10^3/uL
(0.1-0.6)
Monocytes % 10.1 H %
(1.7-9.3)
Sodium 133 L mmol/L
(135-145)
Leukocyte Esterase Rfl Trace A
(Negative)
U Benzodiazepines Scrn Positive H
(Negative)
05/09/24 09:13
05/09/24 09:13
Vital Signs
Initial and Last Documented VS:
Initial Vital Signs
Temp Pulse Resp BP Pulse Ox
97.7 F 81 16 151/96 96
05/09/24 08:01 05/09/24 08:01 05/09/24 08:01 05/09/24 08:01 05/09/24 08:01
Last Documented Vital Signs
Temp Pulse Resp BP Pulse Ox
97.7 F 81 16 151/96 96
05/09/24 08:01 05/09/24 08:01 05/09/24 08:01 05/09/24 08:01 05/09/24 08:01
MDM/Problems Addressed
Differential Diagnosis Includes:
Adjustment disorder, no concern for acute intoxication or warmth, no signs or symptoms suggestive of an infectious etiology
MDM/Problems Addressed:
79-year-old male presenting to the emergency department for evaluation from [facility] for reported suicidal ideations without intent or plan. Needing medical clearance. He is in no acute distress. Labs and urine ordered. No acute
signs of patient. Patient is medically cleared for further psychiatric evaluation.
Chronic conditions affecting care: Psychiatric illness (Anxiety)
*Pulse Oximetry
Patient hypoxic: no
*Critical Care Note
Total Time (30-74mins, 75-104mins- exclusive of procedures): Not Applicable
ED Attending Note
-
Portions of this chart may have been created with voice recognition software.� Occasional wrong word or��sound alike� substitutions may have occurred due to the inherent limitations of voice recognition software.
Discharge Plan
Departure
Patient Disposition: [facility]
Date of Disposition: 05/09/24
Time of Disposition: 09:56
Patient with high blood pressure during this ER visit?: Yes
Discharge Problem:
Suicidal ideations
Prescriptions:
No Action
multivitamin 1 EACH tablet
1 ea PO HS
simvastatin 10 MG tablet
10 mg PO HS
sennosides [senna] 1 TABLET tablet
2 tab PO BID 0RF
acetaminophen 325 MG tablet
650 mg PO Q6H 0RF
aspirin 325 MG tablet,delayed release (DR/EC)
325 mg PO DAILY 0RF
docusate sodium 100 MG capsule
100 mg PO BID 0RF
mupirocin 1 APPLIC ointment
1 swab intranasal BID 0RF
alum-mag hydroxide-simeth [Mag-Al Plus] 30 ML suspension
30 ml PO Q4HPRN PRN (Reason: indigestion) 0RF
oxycodone 5 MG tablet
5 mg PO Q4HPRN PRN (Reason: mild pain) 0RF
mirtazapine [Remeron] 15 mg tablet
7.5 mg PO HS Qty: 30 0RF
Rx Instructions:
Take 30 minutes before bedtime
Referrals:
UNKNOWN - PT DOES,NOT KNOW [Family Provider] -
Interventions
Interventions:
*Risk Screen - Suicide Last Done: 05/09/24 08:01
*General Assessment Last Done: 05/09/24 08:32
*Neglect/Abuse Screening Last Done: 05/09/24 08:01
ED- Fall Risk Assessment Last Done: 05/09/24 08:32
*ED COVID-19 Vaccine History Last Done: 05/09/24 08:01
ED-Psychological Assessment Last Done: 05/09/24 08:35
Discharge Date and Time
Print Language: SAMI
[2024-05-09 10:05] LABS: Urine Mucus Few
[2024-05-09 10:06] LABS: Urine Amorphous Seen; Urine Urothelial Cell 0-2 /LPF (FEW)
[2024-05-09 10:07] LABS: Fentanyl, Urine Negative (Negative); Urine Red Blood Cell 0-2 /HPF (0-2)
[2024-05-09 13:03] LABS: COVID-19 Antigen Negative (Negative)
== END 2024-05-09 14:30 ==
LOC: EMR 07:58
PROVIDERS: Physician Assistant Medical; EMERGENCY PHYSICIAN Emergency Medicine
DX: R45.851 Suicidal ideations (principal); K21.9 Gastro-esophageal reflux disease without esophagitis; E78.00 Pure hypercholesterolemia, unspecified; F41.9 Anxiety disorder, unspecified; Z82.3 Family history of stroke; Z85.46 Personal history of malignant neoplasm of prostate
CPT/HCPCS: 99283; 80053; 80306; 80307; 81003; 81015; 85025; 87811

== ENCOUNTER → 2024-08-02 09:39 | Outpatient (REF) | payer MEDICARE, OTHER, SELFPAY ==
[2024-08-02 10:56] LABS: Hemoglobin 14.2 g/dL (13.0-18.0); Mean Corp Hgb Conc. 34.6 g/dL (33.0-37.0); Mean Corpuscular Hgb 31.3 pg (27.0-31.0); Mean Corpuscular Volume 90.5 fL (80.0-94.0); Mean Platelet Volume 10.9 fL (7.4-10.4); Platelet Count 204 10^3/uL (130-400); Red Blood Cell Count 4.53 10^6/uL (4.70-6.10); Red Cell Dist. Width 13.6 % (11.5-14.5); White Blood Cell Count 9.6 10^3/uL (4.8-10.8)
[2024-08-02 11:53] LABS: ALT (SGPT) 66 U/L (0-50); AST (SGOT) 36 U/L (17-59); Albumin 4.3 g/dl (3.5-5.0); Alkaline Phosphatase 72 U/L (38-126); Blood Urea Nitrogen 18 mg/dl (9-20); Calcium 9.5 mg/dl (8.4-10.2); Carbon Dioxide 23 mmol/L (22-30); Chloride 104 mmol/L (98-107); Glucose 94 mg/dl (70-99); HDL Cholesterol 67 mg/dl; LDL Cholesterol, Calculated 79 mg/dl; Potassium 4.5 mmol/L (3.5-5.1); Sodium 141 mmol/L (135-145); Total Bilirubin 0.6 mg/dl (0.2-1.3); Total Cholesterol 163 mg/dl (50-199); Total Protein 7.2 g/dl (6.3-8.2); Triglyceride 88 mg/dl (10-149); Very Low Density Lipoprotein 17 mg/dl (0-30); eGFR > 60.00
[2024-08-02 12:11] LABS: TSH 2.55 uIU/ml (0.47-4.68)
== END ==
LOC: OLABWPC 09:39
PROVIDERS: ATTENDING PHYSICIAN Internal Medicine
DX: E78.5 Hyperlipidemia, unspecified (principal); F33.9 Major depressive disorder, recurrent, unspecified
CPT/HCPCS: 36415; 80053; 80061; 84443; 85027

== ENCOUNTER 2024-08-13 17:59 | Inpatient (IN) | payer MEDICARE, OTHER, SELFPAY ==
[2024-08-13] VITALS (10 sets, daily range): BP systolic 108–137; BP diastolic 56–89; PULSE 79; O2SAT 94; BMI 23.5; BMI 22.8
--- NOTE | 2024-08-13 13:15 | ED.GENMED ---
History of Present Illness
General
Chief Complaint: Fatigue
Time Seen by Provider: 08/13/24 12:55
History of Present Illness
History of Present Illness:
79-year-old male with history of depression, anxiety, hyperlipidemia, insomnia presenting for generalized weakness and fatigue. Patient reports that he has not been able to sleep in the past several weeks and is now for very tired and fatigued. He
had difficulty getting up for breakfast this morning. Notes that he lives in independent living. Denies associated cough or fever. Denies chest pain or difficulty breathing. Denies abdominal pain. Reports that he was recently hospitalized for
mental health. Denies suicidal ideations. Denies known sick contacts. Denies additional acute medical complaints
Past History
Past History
ED Past Medical History: Cancer (Prostate cancer), GERD and Hypercholesterolemia
ED Past Surgical History: Orthopedic
Social History
Tobacco: Non-smoker
Alcohol: None
Drug: None
Personal:
Living: with family
Employment: Retired
Family History
Family History: Other
Phy Exam
Physical Exam
Physical Exam:
General: Well-appearing, no clinical signs of dehydration, nontoxic and in no acute distress
HEENT: protecting airway
Neck: appears supple
CV: Normal heart rate, regular rhythm, no evidence of cyanosis
Resp: No accessory muscle use, no increased work of breathing, lungs clear to auscultation bilaterally
Abd: Soft and non-distended, no tenderness to palpation
Extremities: No deformities, no swelling, no erythema
Neuro: alert, no focal neurologic deficit
: deferred
Rectal: deferred
Psych: Normal affect
Skin: Intact
Course
Orders/Labs/Results
Orders:
Orders
08/13/24 12:44
EKG [Electrocardiogram (*1)] Urgent
Reason for Study: Fatigue / Weakness
08/13/24 12:45
EKG- Treatment ONCE
08/13/24 13:08
Urinalysis Reflex To Culture Urgent
08/13/24 13:11
COVID-19 Antigen Urgent
Source: Nasal Swab
Complete Blood Count/With Diff Urgent
Comprehensive Metabolic Panel Urgent
08/13/24 15:24
Physical Therapy Consult [Pt Eval And Treat] Urgent
Activity Level: Ambulate
08/13/24 16:07
Case Management Consult ONCE
Case Management Consult: Fpc Placement
08/13/24 16:51
CT Head W/o Iv Contrast Urgent
Comment:
Reason For Exam: generalized weakness
Abnormal Lab Results
08/13/24
13:11
RBC 4.63 L 10^6/uL
(4.70-6.10)
MCH 31.3 H pg
(27.0-31.0)
Absolute Monos (auto) 0.9 H 10^3/uL
(0.1-0.6)
Monocytes % 10.4 H %
(1.7-9.3)
ALT 68 H U/L
(0-50)
08/13/24 13:11
08/13/24 13:11
Vital Signs
Initial and Last Documented VS:
Initial Vital Signs
Pulse Resp Pulse Ox
77 15 98
08/13/24 12:56 08/13/24 12:56 08/13/24 12:56
Last Documented Vital Signs
Pulse Resp BP Pulse Ox
78 13 130/71 95
08/13/24 16:00 08/13/24 16:00 08/13/24 16:00 08/13/24 16:00
MDM/Problems Addressed
MDM/Problems Addressed:
79-year-old male with history of depression, anxiety, insomnia presenting for fatigue and difficulty sleeping. Vital signs on arrival are normal.
On exam, patient is in no acute distress. He is nontoxic with unremarkable cardiac, pulmonary, abdominal exam. Patient reports known history of insomnia. He takes melatonin. Fact that symptoms are secondary to disruption in sleep patterns. He
reports recent hospitalization for mental illness. He denies suicidal ideations, presently does not appear to be a threat to himself or others. Will screen with laboratory analysis, urinalysis, COVID.
15:20 -patient's workup thus far is unremarkable. Continue to suspect that patient symptoms are from lack of sleep. Son had called to the hospital, notes that this has been an ongoing issue, which worsened after recent hospitalization. Will
consult with physical therapy
16:00 -patient seen by physical therapy, note that he did require some assistance with ambulating, seemed very fatigued/tired. Unclear if patient can go back to independent living. Will discuss with case management
16:55-Per case management, patient will require placement, which will take a few days, recommending admission.
*EKG
Interpreted by ED Provider?: Yes
EKG Intrepretation Date: 08/13/24
EKG Intrepretation Time: 13:19
Interpretation: normal
Comparison EKG: no changes
Heart Rate: 79
Rate: normal
Rhythm: sinus
[place]: normal axis
Interval: normal interval
QRS Pattern: normal QRS
Ischemia: no ischemia
*Critical Care Note
Total Time (30-74mins, 75-104mins- exclusive of procedures): Not Applicable
ED Attending Note
-
Portions of this chart may have been created with voice recognition software.� Occasional wrong word or��sound alike� substitutions may have occurred due to the inherent limitations of voice recognition software.
Discharge Plan
Departure
Prescriptions:
No Action
multivitamin 1 EACH tablet
1 ea PO HS
trazodone 50 mg Tablet
50 mg PO HS
polyethylene glycol 3350 [Miralax] 17 gram Powder In Packet
17 g PO DAILYPRN PRN (Reason: CONSTIPATION)
atorvastatin [Lipitor] 10 mg Tablet
10 mg PO QPM
clonazepam 0.5 mg Tablet
0.5 mg PO DAILY
sertraline 100 mg Tablet
200 mg PO DAILY
clonazepam 1 mg Tablet
1 mg PO HS
acetaminophen [Tylenol Extended Release] 650 mg Tablet Extended Release
650 mg PO Q6HPRN PRN (Reason: FEVER >101)
Compound W 17 % Liquid
1 applic TOPICAL QPM
pantoprazole [Protonix] 40 mg Tablet,Delayed Release (Dr/Ec)
40 mg PO BID
calcium carbonate [Tums] 200 mg calcium (500 mg) Tablet,Chewable
200 mg PO Q8HPRN PRN (Reason: GERD)
risperidone 1 mg Tablet
1 mg PO HS
bupropion HCl [Wellbutrin XL] 300 mg Tablet Extended Release 24 Hr
300 mg PO DAILY
melatonin 5 mg Tablet
5 mg PO HSPRN PRN (Reason: SLEEP)
Referrals:
Lauren Coburn MD [Family Provider] -
Interventions
Interventions:
*Risk Screen - Suicide Last Done: 08/13/24 12:56
*General Assessment Last Done: 08/13/24 12:56
*Neglect/Abuse Screening Last Done: 08/13/24 12:56
*ED COVID-19 Vaccine History Last Done: 08/13/24 12:56
Discharge Date and Time
Print Language: CHINESE
[2024-08-13 13:22] LABS: % Basophils 0.8 % (0-2); % Eosinophils 2.8 % (0-6); % Immature Granulocytes 0.3 % (0-0.5); % Lymphocytes 24.1 % (20.5-51.1); % Monocytes 10.4 % (1.7-9.3); % Neutrophils 61.6 % (42.2-75.2); Absolute Basophils 0.1 10^3/uL (0-0.2); Absolute Eosinophils 0.2 10^3/uL (0-0.7); Absolute Lymphocytes 2.1 10^3/uL (1.2-3.4); Absolute Monocytes 0.9 10^3/uL (0.1-0.6); Absolute Neutrophils 5.3 10^3/uL (1.4-6.5); Hematocrit 41.7 % (39.0-52.0); Hemoglobin 14.5 g/dL (13.0-18.0); Mean Corp Hgb Conc. 34.8 g/dL (33.0-37.0); Mean Corpuscular Hgb 31.3 pg (27.0-31.0); Mean Corpuscular Volume 90.1 fL (80.0-94.0); Mean Platelet Volume 10.4 fL (7.4-10.4); Nucleated Red Blood Cells % 0 % (-); Platelet Count 220 10^3/uL (130-400); Red Blood Cell Count 4.63 10^6/uL (4.70-6.10); Red Cell Dist. Width 13.2 % (11.5-14.5); White Blood Cell Count 8.6 10^3/uL (4.8-10.8)
[2024-08-13 13:38] LABS: ALT (SGPT) 68 U/L (0-50); AST (SGOT) 37 U/L (17-59); Albumin 4.2 g/dl (3.5-5.0); Alkaline Phosphatase 70 U/L (38-126); Blood Urea Nitrogen 19 mg/dl (9-20); Calcium 9.5 mg/dl (8.4-10.2); Carbon Dioxide 26 mmol/L (22-30); Chloride 100 mmol/L (98-107); Estimated Creatinine Clearance 69 ml/min; Glucose 97 mg/dl (70-99); Potassium 4.2 mmol/L (3.5-5.1); Sodium 136 mmol/L (135-145); Total Bilirubin 0.6 mg/dl (0.2-1.3); Total Protein 6.9 g/dl (6.3-8.2); eGFR > 60.00
[2024-08-13 13:58] LABS: COVID-19 Antigen Negative (Negative)
--- NOTE | 2024-08-13 17:04 | HPS.HSE ---
Family Physician
-
Family Physician: Lauren Coburn
Chief Complaint
-
Weakness, insomnia
History of Present Illness
HPI: 79-year-old male with history of depression/anxiety, hyperlipidemia, insomnia, HTN, prostate cancer, from assisted living; p/w generalized weakness and fatigue. Patient reported that he has not been able to sleep in the past several weeks and
is feeling tired/fatigued. He had difficulty getting up for breakfast in the morning.
He denies to other symptoms such as fever/chills, chest pain, shortness of breath, abdominal pain, change urination/dysuria.
He does report occasional constipation, but had bowel movement the day prior to admission.
Medical History
Past Medical History
Past Medical History: Reports Other
Additional Past Medical History:
depression/anxiety
hyperlipidemia
insomnia
HTN
prostate cancer
Past Surgical History: Reports Other
Additional Past Surgical History:
Right shoulder replacement
Left knee replacement
Social History
Tobacco: Non-smoker
Alcohol: None
Living: Assisted Living
Family History
Family History: Not pertinent
Allergies / Home Medications
Allergies reflects when Allergies were last updated in [employer].
Home Medications with original date entered in [employer]
Allergy/Medication List:
Allergies
Allergy/AdvReac Type Severity Reaction Status Date / Time
No Known Allergies Allergy Verified 05/09/24 08:09
Home Medications
multivitamin 1 ea PO HS 09/04/18
acetaminophen 650 mg tablet,extended release 650 mg PO Q6HPRN PRN FEVER >101 08/13/24
atorvastatin 10 mg tablet (Lipitor) 10 mg PO QPM 08/13/24
bupropion HCl 300 mg 24 hr tablet, extended release (Wellbutrin XL) 300 mg PO DAILY 08/13/24
calcium carbonate (Tums) 200 mg PO Q8HPRN PRN GERD 08/13/24
clonazepam 0.5 mg tablet 0.5 mg PO DAILY 08/13/24
clonazepam 1 mg tablet 1 mg PO HS 08/13/24
melatonin 5 mg tablet 5 mg PO HSPRN PRN SLEEP 08/13/24
pantoprazole 40 mg tablet,delayed release (Protonix) 40 mg PO BID 08/13/24
polyethylene glycol 3350 17 gram oral powder packet (Miralax) 17 g PO DAILYPRN PRN CONSTIPATION 08/13/24
risperidone 1 mg tablet 1 mg PO HS 08/13/24
salicylic acid 17 % topical liquid (Compound W) 1 applic topical QPM B/L HAND WARTS 08/13/24
sertraline 100 mg tablet 200 mg PO DAILY 08/13/24
trazodone 50 mg tablet 50 mg PO HS 08/13/24
Review of Systems
-
Constitutional: Reports Fatigue
Physical Exam
Vital Signs
Vital Signs
Pulse Resp BP Pulse Ox
78 13 130/71 95
08/13/24 16:00 08/13/24 16:00 08/13/24 16:00 08/13/24 16:00
Physical Exam
General: Well Developed, Well Nourished, No Apparent Distress, Comfortable, Conversant and Appears Chronically Ill
HEENT: NormoCephalic, Moist mucous membranes and Atraumatic
Respiratory: Clear and Non Labored Respirations; No Accessory Resp Muscle Use
Cardiac: S1/S2 and Regular Rhythm; No Murmur or Rub
GI: Soft, Non Tender, Non Distended and Normal Bowel Sounds; No Organomegaly
Rectal: Deferred by Provider
Musculoskeletal: No Clubbing, No Cyanosis and No Edema
Skin: Warm; No Rash
Neuro: Awake and Alert
Psych: Calm, Intact Judgment/Insight (somewhat) and Other (Slow to respond to questions)
Laboratory Results
-
08/13/24 13:11
08/13/24 13:11
Laboratory Results
Total Bilirubin 0.6 mg/dl (0.2-1.3) 08/13/24 13:11
AST 37 U/L (17-59) 08/13/24 13:11
ALT 68 U/L (0-50) H 08/13/24 13:11
Alkaline Phosphatase 70 U/L (38-126) 08/13/24 13:11
Data Reviewed
-
Lab Data: Labs Reviewed by me
Impression/Plan
-
HPI: 79-year-old male with history of depression/anxiety, hyperlipidemia, insomnia, HTN, prostate cancer, from assisted living; p/w generalized weakness and fatigue. Patient reported that he has not been able to sleep in the past several weeks and
is feeling tired/fatigued. He had difficulty getting up for breakfast in the morning.
He denies to other symptoms such as fever/chills, chest pain, shortness of breath, abdominal pain, change urination/dysuria.
He does report occasional constipation, but had bowel movement the day prior to admission.
A/P:
# Generalized weakness
Check TSH reflex FT4
Check CRP to rule out acute infectious process
PT OT recommend SNF
manager office services consult for disposition
# depression/anxiety
# insomnia
mood stable, patient denies to any suicide ideation
Cont DRYING CAN WORKER clonazepam, bupropion, risperidone, Zoloft
Cont DRYING CAN WORKER trazodone, melatonin
# hyperlipidemia
Cont DRYING CAN WORKER statin
# HTN
Not on meds
BP stable, monitor BP
# h/o prostate cancer
DVT ppx: Lovenox SQ
FC
--- NOTE | 2024-08-13 17:12 | CM ---
CM was consulted for custodial placement. CM reviewed medical records. PT recommended SNF.
CM spoke with son Solo. Solo endorses that patient lives in [place] at [facility]. Patient's is currently in SNF at [facility]. Patient recently presented to in April with depression and suicidal ideations. Patient was transferred to [facility] where patient was admitted for 2 and months. Son feels that patient's stay at inpatient psych cause a decline in patient's function including ambulatory dysfunction and increasing difficulty with sleep.
Patient son is declining inpatient psych. Patient's son would be agreeable to SNF. CM advised regarding the difficulties in payment options if patient is placed under observation. Patient's son stated that he would be willing to private pay if
needed and son would prefer [facility]. CM informed son that patient is eligible for [facility] Waiver. Son will discuss options with family, but is agreeable to have referral placed to [facility].
CM further advised son that patient will have to be evaluated by the [facility] due to patient's recent placement in inpatient psych. Patient's son understood and did not have further questions.
CM updated patient. CM updated bedside RN and ED MD.
[2024-08-13 18:18] LABS: C-Reactive Protein < 5.00 mg/L (0.0-10.00)
[2024-08-13 18:49] LABS: TSH Reflex To Free T4 1.75 uIU/ml (0.47-4.68)
[2024-08-13 19:23] LABS: Urine Albumin Negative (Neg - Trace); Urine Bilirubin Negative (Negative); Urine Character Clear (Clear); Urine Color Yellow; Urine Glucose Negative (Negative); Urine Ketone Negative (Negative); Urine Leukocyte Negative (Negative); Urine Nitrite Negative (Negative); Urine Occult Blood Negative (Negative); Urine Urobilinogen Negative (Neg - 1+)
[2024-08-13] MEDS: PROTONIX 40 MG PO (21:07)
[2024-08-13] MEDS: LIPITOR 10 MG PO (21:07)
[2024-08-13] MEDS: RISPERDAL 1 MG PO (21:07)
[2024-08-13] MEDS: KLONOPIN 1 MG PO (21:07)
[2024-08-13] MEDS: DESYREL 50 MG PO (21:08)
[2024-08-14 05:48] LABS: Hematocrit 41.6 % (39.0-52.0); Hemoglobin 14.2 g/dL (13.0-18.0); Mean Corp Hgb Conc. 34.1 g/dL (33.0-37.0); Mean Corpuscular Hgb 30.2 pg (27.0-31.0); Mean Corpuscular Volume 88.5 fL (80.0-94.0); Mean Platelet Volume 10.8 fL (7.4-10.4); Platelet Count 228 10^3/uL (130-400); Red Cell Dist. Width 13.3 % (11.5-14.5); White Blood Cell Count 9.3 10^3/uL (4.8-10.8)
[2024-08-14 05:59] LABS: Blood Urea Nitrogen 19 mg/dl (9-20); Calcium 9.6 mg/dl (8.4-10.2); Carbon Dioxide 25 mmol/L (22-30); Chloride 101 mmol/L (98-107); Estimated Creatinine Clearance 56 ml/min; Glucose 90 mg/dl (70-99); Magnesium 2.2 mg/dl (1.6-2.3); Potassium 4.5 mmol/L (3.5-5.1); Sodium 140 mmol/L (135-145); eGFR > 60.00
[2024-08-14 07:05] VITALS: BP 110/69
--- NOTE | 2024-08-14 08:56 | W.PN.HOSP.TC ---
Today's Communication/Plan
-
see A/P
Assessment / Plan
Assessment / Plan
HPI: 79-year-old male with history of depression/anxiety, hyperlipidemia, insomnia, HTN, prostate cancer, from assisted living; p/w generalized weakness and fatigue. Patient reported that he has not been able to sleep in the past several weeks and
is feeling tired/fatigued. He had difficulty getting up for breakfast in the morning.
He denies to other symptoms such as fever/chills, chest pain, shortness of breath, abdominal pain, change urination/dysuria.
He does report occasional constipation, but had bowel movement the day prior to admission.
A/P:
# Generalized weakness
TSH 1.75
CRP neg which rules out acute infectious/inflammatory process
PT OT recommend SNF
capacity planning manager consult for disposition
# depression/anxiety
# insomnia
mood stable, patient denies to any suicide ideation
Cont PANTS CLOSER clonazepam, bupropion, risperidone, Zoloft
Cont PANTS CLOSER trazodone, melatonin
# hyperlipidemia
Cont PANTS CLOSER statin
# HTN
Not on meds
BP stable, monitor BP
# h/o prostate cancer
DVT ppx: Lovenox SQ
FC
DW RN
Anticipated Discharge: Within 24 hours
Subjective/Interval History
-
Date of Service: August 14, 2024
Objective Data
-
Labs:
Laboratory Results
08/14/24
05:07
WBC 9.3
Hgb 14.2
Hct 41.6
Plt Count 228
Sodium 140
Potassium 4.5
Chloride 101
Carbon Dioxide 25
BUN 19
Creatinine 1.1
Glucose 90
Calcium 9.6
Vital Signs:
Vital Signs
Temp Pulse Resp BP Pulse Ox
36.4 C 84 18 110/69 96
08/14/24 07:05 08/14/24 07:05 08/14/24 07:05 08/14/24 07:05 08/14/24 07:05
I&O
08/13/24 08/14/24 08/15/24
06:59 06:59 06:59
Intake Total 240 / 240
Balance 240 / 240
Review of Systems
-
Constitutional: Reports Fatigue and Other (imsomnia)
Physical Exam
-
General: Well Developed, Well Nourished, No Apparent Distress, Comfortable and Conversant; Negative Respiratory Distress
HEENT: Normocephalic, Atraumatic, Nose Appears Normal and Ears Appear Normal; Negative Oxygen
Respiratory: Clear to Auscultation and Non Labored Respirations; Negative Accessory Resp Muscle Use
Cardiac: Regular Rhythm and S1/S2
GI: Soft, Nontender, Nondistended and Normal Bowel Sounds
Skin: Warm and Dry
Neuro: Awake and Alert
Psych: Calm and Intact Judgement/Insight (somewhat)
Data Reviewed
-
CT Scan: Report Reviewed by me
Labs: Labs Reviewed by me
[2024-08-14] MEDS: PROTONIX 40 MG PO ×2 (08:58→19:15)
[2024-08-14] MEDS: KLONOPIN 0.5 MG PO (08:58)
[2024-08-14] MEDS: WELLBUTRIN XL (24 hour extended release) 300 MG PO (08:58)
[2024-08-14] MEDS: ZOLOFT 200 MG PO (08:58)
[2024-08-14 10:10] VITALS: BP 104/63; PULSE 100; O2SAT 94
[2024-08-14 11:25] VITALS: BP 123/72; PULSE 101; O2SAT 96
[2024-08-14 15:25] VITALS: BP 99/63
[2024-08-14] MEDS: LIPITOR 10 MG PO (17:15)
[2024-08-14] MEDS: RISPERDAL 1 MG PO (21:12)
[2024-08-14] MEDS: KLONOPIN 1 MG PO (21:12)
[2024-08-14] MEDS: DESYREL 50 MG PO (21:12)
[2024-08-14 23:41] VITALS: BP 99/56
--- NOTE | 2024-08-15 05:04 | DOWNTIME ---
There was a [employer] Cold Storage Worker Downtime on 08/15/2024 from 0100 to 08/15/2024 at 0300. Downtime documentation of patient's care, including medication administrations, has been reconciled in the electronic record per guidelines. Refer to the
patient's paper chart under the miscellaneous tab to see printed paper medication records and downtime forms.
[2024-08-15 07:51] VITALS: BP 105/67
[2024-08-15] MEDS: KLONOPIN 0.5 MG PO (08:59)
[2024-08-15] MEDS: PROTONIX 40 MG PO ×2 (08:59→20:26)
[2024-08-15] MEDS: ZOLOFT 200 MG PO (08:59)
[2024-08-15] MEDS: WELLBUTRIN XL (24 hour extended release) 300 MG PO (08:59)
--- NOTE | 2024-08-15 10:10 | W.PN.HOSP.TC ---
Addendum entered and electronically signed by Madina Mcdonald MD 08/15/24 14:25:
Discussed with on the phone.
Discussed with son on the phone.
Family members are willing to consider ECT as treatment modality for patient's severe depression recalcitrant to medical therapy.
However, son is reluctant for the patient's to be transferred to a psychiatric facility, given he would be surrounded by psychiatric patients which would (and had) affect his mood and behavior.
Will need to discuss this further with gearcase assembler and psychiatrist for past dispo plan.
total time spent 51 min
Original Note:
Today's Communication/Plan
-
see A/P
Assessment / Plan
Assessment / Plan
HPI: 79-year-old male with history of depression/anxiety, hyperlipidemia, insomnia, HTN, prostate cancer, from assisted living; p/w generalized weakness and fatigue. Patient reported that he has not been able to sleep in the past several weeks and
is feeling tired/fatigued. He had difficulty getting up for breakfast in the morning.
He denies to other symptoms such as fever/chills, chest pain, shortness of breath, abdominal pain, change urination/dysuria.
He does report occasional constipation, but had bowel movement the day prior to admission.
A/P:
# Generalized weakness
TSH 1.75
CRP negative which rules out acute infectious/inflammatory process
PT OT recommend SNF
marketing development manager consult for disposition
# depression/anxiety
# insomnia
mood stable, patient denies to any suicide ideation
Cont WORK MANAGER clonazepam, bupropion, risperidone, Zoloft
Cont WORK MANAGER trazodone, melatonin
Psych eval for clinical depression
# hyperlipidemia
Cont WORK MANAGER statin
# HTN
Not on meds
BP stable, monitor BP
# h/o prostate cancer
DVT ppx: Lovenox SQ
FC
DW RN
Anticipated Discharge: 24 - 48 hours
Subjective/Interval History
-
Date of Service: August 15, 2024
Objective Data
-
Vital Signs:
Vital Signs
Temp Pulse Resp BP Pulse Ox
37.0 C 86 17 105/67 96
08/15/24 07:51 08/15/24 07:51 08/15/24 07:51 08/15/24 07:51 08/15/24 07:51
I&O
08/14/24 08/15/24 08/16/24
06:59 06:59 06:59
Intake Total 240 / 240 480 / 480
Balance 240 / 240 480 / 480
Review of Systems
-
Constitutional: Reports Fatigue and Other (insomnia)
Physical Exam
-
General: Well Developed, Well Nourished, No Apparent Distress, Comfortable and Conversant; Negative Respiratory Distress
HEENT: Normocephalic, Atraumatic, Nose Appears Normal and Ears Appear Normal; Negative Oxygen
Respiratory: Clear to Auscultation and Non Labored Respirations; Negative Accessory Resp Muscle Use
Cardiac: Regular Rhythm and S1/S2
GI: Soft, Nontender, Nondistended and Normal Bowel Sounds
Skin: Warm and Dry
Neuro: Awake and Alert
Psych: Calm, Intact Judgement/Insight (somewhat) and Depressed
Data Reviewed
-
CT Scan: Report Reviewed by me
Labs: Labs Reviewed by me
--- NOTE | 2024-08-15 11:57 | CON.MD ---
Consultation - Medical
-
patient seen chart reviewed. discussed with nursing. the patient is a 79 year old male who became depressed in winter/early spring 2023 when had a debilitating stroke. she did recover to the point where she can toilet herself but is still very
much impaired and spends much of her time in a wheelchair. 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 his depression was severe and he was hosp at [facility] for several months. dc meds as follows risperdal one mg q hs trazodone
50 q hs sertraline 200 mg qd wellbutrin xl 300 mg klonopin o.5/1 mg it appears melatonin added on admit to . he thought the meds helped at first but he is now feeling worse and comes to w c.o lethargy fatigue and inability to function. he
does not sleep well. says he does eat and weight is stable. he feels very very weak. he is not suicidal. prior to h had 'bad thoughts' re si but did not make an attempt. nothing to suggest psychosis. does not feel meds currently help him
past psych hx see above
medical hx loose body right shoulder hld hx anxiety osteo s/p l knee and hip repair prostate cancer head ct no acute changes atrophy white matter disease labs unremarkable
fh non contrib
substance abuse one beer daily
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
mse alert ox3 speech soft and a little slow. appears very weak and frail. thought process goal directed no psychosis affect constricted profoundly depressed denies si above aver intell insight judgment ok
dx major depression recurrent severe
plan i feel this patient would benefit from ECT. he has the type of depression that could really be ameliorated relatively quickly perhaps from ect. would seek a psych facility that has the possibility of ect. for now have dc'ed risperdal .
seroquel would help more w sleep and it is indicated for rx of depression. it can be sedating however would dc am klonopin. would dc hs trazodone and melatonin. check b12 folate. will follow
[2024-08-15 15:15] VITALS: BP 115/74
--- NOTE | 2024-08-15 15:47 | CM ---
Pt lives in [facility] .
Referral made to [facility]. with [place].
Pt will hx of depression . Psychiatry saw pt.
SPoke with Yobany son [phone] he would like to speak with Psychiatry . TT sent to Dr. Moreno with son request.
Both MD and son believe pt needs ECT.
DC planning on going either SNF with out pt Psych [facility].
[2024-08-15] MEDS: LIPITOR 10 MG PO (18:00)
[2024-08-15] MEDS: KLONOPIN 1 MG PO (21:25)
[2024-08-15] MEDS: SEROQUEL 25 MG PO (21:25)
[2024-08-15 23:30] VITALS: BP 114/69
[2024-08-16 07:39] VITALS: BP 109/68
[2024-08-16] MEDS: ZOLOFT 200 MG PO (07:52)
[2024-08-16] MEDS: WELLBUTRIN XL (24 hour extended release) 150 MG PO (07:52)
[2024-08-16] MEDS: PROTONIX 40 MG PO ×2 (07:52→21:39)
--- NOTE | 2024-08-16 10:12 | W.PN.HOSP.TC ---
Addendum entered and electronically signed by Madina Mcdonald MD 08/16/24 14:24:
# generalized weakness is related to/associated with/due to major depression.
Original Note:
Today's Communication/Plan
-
see A/P
Assessment / Plan
Assessment / Plan
HPI: 79-year-old male with history of depression/anxiety, hyperlipidemia, insomnia, HTN, prostate cancer, from assisted living; p/w generalized weakness and fatigue. Patient reported that he has not been able to sleep in the past several weeks and
is feeling tired/fatigued. He had difficulty getting up for breakfast in the morning.
He denies to other symptoms such as fever/chills, chest pain, shortness of breath, abdominal pain, change urination/dysuria.
He does report occasional constipation, but had bowel movement the day prior to admission.
A/P:
# Generalized weakness
TSH 1.75
CRP negative which rules out acute infectious/inflammatory process
PT OT recommend SNF
manager nc consult for disposition
# depression/anxiety
# insomnia
mood depressed, but patient denies to any suicide ideation
Psych on board, recc ECT. For now, DCed Risperdal HS/am Klonopin/trazodone HS and melatonin; Decreased Bupropion from 300 mg to 150 mg daily, cont Seroquel 25 mg HS, cont Zoloft 200 mg daily, Klonopin 1 mg HS
Follow b12 and folate.
# hyperlipidemia
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
# HTN
Not on meds
BP stable, monitor BP
# h/o prostate cancer
DVT ppx: Lovenox SQ
FC
Dispo planning TBD: SNF vs psych facility (although son is leaning against Psych facility, feeling that it would change behavior of pt)
DW RN
total time spent 51 min
Anticipated Discharge: 24 - 48 hours
Subjective/Interval History
-
Date of Service: August 16, 2024
Objective Data
-
Vital Signs:
Vital Signs
Temp Pulse Resp BP Pulse Ox
37.1 C 95 16 109/68 97
08/16/24 07:39 08/16/24 07:39 08/16/24 07:39 08/16/24 07:39 08/16/24 07:39
I&O
08/15/24 08/16/24 08/17/24
06:59 06:59 06:59
Intake Total 480 / 480 480 / 480
Balance 480 / 480 480 / 480
Review of Systems
-
Constitutional: Reports Fatigue and Other (insomnia)
Physical Exam
-
General: Well Developed, Well Nourished, No Apparent Distress, Comfortable and Conversant; Negative Respiratory Distress
HEENT: Normocephalic, Atraumatic, Nose Appears Normal and Ears Appear Normal; Negative Oxygen
Respiratory: Clear to Auscultation and Non Labored Respirations; Negative Accessory Resp Muscle Use
Cardiac: Regular Rhythm and S1/S2
GI: Soft, Nontender, Nondistended and Normal Bowel Sounds
Skin: Warm and Dry
Neuro: Awake and Alert
Psych: Calm, Intact Judgement/Insight (somewhat) and Depressed
Data Reviewed
-
CT Scan: Report Reviewed by me
Labs: Labs Reviewed by me
[2024-08-16 11:13] LABS: Folate 18.2 ng/ml (2.76-20); Vitamin B12 877 pg/ml (239-931)
--- NOTE | 2024-08-16 12:17 | W.PN.UPDATE ---
Update Note
Progress Note Update
patient seen chart reviewed. spoke with nursing and with cm. patient remains profoundly depressed. the patient expresses the fear which is realistic that the longer he is depressed and not moving the more dysfunctional he will become physically.
patient is ambivalent about ect but not opposed totally. spoke in detail with son who is in favor of ECT which i recommend . i am investigating places where this might be accomplished with some degree of comfort for patient....son fears a
geriatric unit where no one but his father is capable of conversing or a unit where patients might be aggressive or scary for patient which is understandable. there are not a lot of options for a geriatric depressed patient to receive ect. have a
call in to [facility] in [place] to see if that might be a possibility. awaiting call back. patient reports he did not not sleep last night. have increased seroquel to 50 mg at hs
--- NOTE | 2024-08-16 14:02 | PN.CDI ---
CDI
- -
CDI:
Physician Documentation Request
Admit Date: 08/13/24 17:59
Dear Doctor Harry,
Please review the following and provide your response in the progress notes.
Clinical Indicators:
- 08/13 ER Physician 'presenting for generalized weakness and fatigue'
- 'difficulty getting up for breakfast this morning'
- 08/15 Psych 'major depression recurrent severe'
- 08/16 Psych 'remains profoundly depressed'
- 'patient expresses the fear which is realistic that the longer he is depressed and not moving the more dysfunctional he will become physically'
Please clarify the relationship between these conditions:
Yes, _generalized weakness__ is related to/associated with/due to _major depression__.
No, __generalized weakness_ is not related to/associated with/due to _major depression__ but it is due to . (Please specify)
Unable to determine
Use of terms such as suspected, likely, concern for, or probable (associated with a specific diagnosis that is being evaluated, monitored, or treated as if it exists) are acceptable and can be coded in the inpatient setting, when documented at the
time of discharge.
Thank you,
Geovanni Almaguer RN
CDI Specialist
Please use your independent medical judgment in providing your response.
[2024-08-16 15:54] VITALS: BP 112/70
[2024-08-16 15:56] VITALS: BP 112/70; PULSE 97; O2SAT 96
[2024-08-16] MEDS: LIPITOR 10 MG PO (17:11)
--- NOTE | 2024-08-16 17:33 | EDCM ---
Pt lives in [facility] .
Dr Moreno requested clinical to be faxed to [facility] for ECT treatment fax [phone] which was done.
Pt will hx of depression . Psychiatry saw pt.
Yobany son [phone] agrees with pal
Both MD and son believe pt needs ECT.
DC Clinical sent to [facility] /[facility]. Possible ECT treatment
[2024-08-16] MEDS: SEROQUEL 50 MG PO (21:39)
[2024-08-16] MEDS: KLONOPIN 1 MG PO (21:39)
[2024-08-16 23:08] VITALS: BP 104/53
[2024-08-17] MEDS: WELLBUTRIN XL (24 hour extended release) 150 MG PO (07:37)
[2024-08-17] MEDS: PROTONIX 40 MG PO (07:37)
[2024-08-17] MEDS: ZOLOFT 200 MG PO (07:37)
[2024-08-17 07:49] VITALS: BP 142/82
--- NOTE | 2024-08-17 09:42 | W.PN.HOSP.TC ---
Addendum entered and electronically signed by Madina Mcdonald MD 08/17/24 12:50:
total DC time 38 min
Original Note:
Today's Communication/Plan
-
see A/P
Assessment / Plan
Assessment / Plan
HPI: 79-year-old male with history of depression/anxiety, hyperlipidemia, insomnia, HTN, prostate cancer, from assisted living; p/w generalized weakness and fatigue. Patient reported that he has not been able to sleep in the past several weeks and
is feeling tired/fatigued. He had difficulty getting up for breakfast in the morning.
He denies to other symptoms such as fever/chills, chest pain, shortness of breath, abdominal pain, change urination/dysuria.
He does report occasional constipation, but had bowel movement the day prior to admission.
A/P:
# Generalized weakness
TSH 1.75
CRP negative which rules out acute infectious/inflammatory process
PT OT recommend SNF
selling manager consult for disposition
# depression/anxiety
# insomnia
mood depressed, but patient denies to any suicide ideation
Psych on board, recc ECT.
For now, DCed Risperdal HS/am Klonopin/trazodone HS and melatonin;
Decreased Bupropion from 300 mg to 150 mg daily, cont Zoloft 200 mg daily, Klonopin 1 mg HS
cont Seroquel now at 50 mg HS (to help with sleep)
B12/ folate levels WNL.
Psych facilitating dispo plan.
# Watery Diarrhea reported by patient
check C diff, Norovirus, stool culture
Consider loperamide if C diff negative
# hyperlipidemia
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
# HTN
Not on meds
BP stable, monitor BP
# h/o prostate cancer
DVT ppx: Lovenox SQ
FC
Dispo planning TBD: SNF vs psych facility (although son is leaning against Psych facility, feeling that it would change pt's behavior for the worse)
DW RN
Anticipated Discharge: 24 - 48 hours
Subjective/Interval History
-
Date of Service: August 17, 2024
Objective Data
-
Vital Signs:
Vital Signs
Temp Pulse Resp BP Pulse Ox
37.0 C 94 17 142/82 96
08/17/24 07:49 08/17/24 07:49 08/17/24 07:49 08/17/24 07:49 08/17/24 07:49
I&O
08/16/24 08/17/24 08/18/24
06:59 06:59 06:59
Intake Total 480 / 480
Balance 480 / 480
Review of Systems
-
Constitutional: Reports Fatigue and Other (insomnia)
Abdomen/GI: Reports Diarrhea
Physical Exam
-
General: Well Developed, Well Nourished, No Apparent Distress, Comfortable and Conversant; Negative Respiratory Distress
HEENT: Normocephalic, Atraumatic, Nose Appears Normal and Ears Appear Normal; Negative Oxygen
Respiratory: Clear to Auscultation and Non Labored Respirations; Negative Accessory Resp Muscle Use
Cardiac: Regular Rhythm and S1/S2
GI: Soft, Nontender, Nondistended and Normal Bowel Sounds
Skin: Warm and Dry
Neuro: Awake and Alert
Psych: Calm, Intact Judgement/Insight (somewhat) and Depressed
Data Reviewed
-
CT Scan: Report Reviewed by me
Labs: Labs Reviewed by me
--- NOTE | 2024-08-17 11:41 | W.PN.UPDATE ---
Update Note
Progress Note Update
patient seen chart reviewed. spoke with nursing and with cm. the patient remains very depressed. he is willing to go to [facility] for ECT and will sign the consent. i spoke to patient's son Solo this am and explained the ECT procedure, the
mechanics of transfer to [facility]. son had already spoke to mr velazquez this morning. will be proceeding with requirements for transfer which would include signing consent for ect and covid test .
--- NOTE | 2024-08-17 12:17 | W.DCSUMMARY ---
Discharge Summary
Discharge Data
Date of Admission: 08/13/24
Date of Discharge: 08/17/24
-
Pending Results: No
Hospital Course
Principal Diagnosis:
Generalized weakness, listless and insomnia due to severe depression without suicidal ideation
Chronic Diagnoses:�
Hyperlipidemia
Hypertension
History of prostate cancer
Consultations:�
Psychiatry
Procedures:�
None
Clinical course:�
This is a 79-year-old male with past medical history as stated above, who presented from SNF due to generalized weakness, fatigue and insomnia secondary to severe depression.
Problem 1:
Generalized weakness, listless and insomnia due to severe depression without suicidal ideation.
His TSH was checked which was within normal limits at 1.75.
His CRP was negative which ruled out acute infectious/inflammatory process.
He was seen by psychiatrist, and several of his medications were adjusted: Risperdal HS, am Klonopin and trazodone HS were discontinued; decreased Bupropion from 300 mg to 150 mg daily, added Seroquel 50 mg HS and Zoloft 200 mg daily, Klonopin 1 mg
HS were continued.
He was discharged to [facility] for ECT.
As for the rest of his medical problems, they were stable during his hospital stay.
Discharge Plan
-
Patient Disposition: [facility] SNF/Hospital
Discharge Diagnosis/Procedures: Generalized weakness and insomnia due to severe depression
Condition: Fair
Diet: As tolerated
Activity: As tolerated
Driving Restrictions: Not until seen by your Dr
Referrals:
Lauren Coburn MD [Family Provider] - in less than 1 week
Additional Discharge Medication Instructions: We have discontinued Risperdal at night, trazodone at night, and morning Klonopin.
We have decreased Bupropion from 300 mg to 150 mg daily.
We have added Seroquel at 50 mg HS (to help with mood and sleep)
Prescriptions:
New
quetiapine 25 mg Tablet
50 mg PO HS Qty: 30 0RF
bupropion HCl 150 mg Tablet Extended Release 24 Hr
150 mg PO DAILY Qty: 30 0RF
Continued
multivitamin 1 EACH tablet
1 ea PO HS
polyethylene glycol 3350 [Miralax] 17 gram Powder In Packet
17 g PO DAILYPRN PRN (Reason: CONSTIPATION)
atorvastatin [Lipitor] 10 mg Tablet
10 mg PO QPM
sertraline 100 mg Tablet
200 mg PO DAILY
acetaminophen 650 mg Tablet Extended Release
650 mg PO Q6HPRN PRN (Reason: FEVER >101)
pantoprazole [Protonix] 40 mg Tablet,Delayed Release (Dr/Ec)
40 mg PO BID
melatonin 5 mg Tablet
5 mg PO HSPRN PRN (Reason: SLEEP)
clonazepam 1 mg Tablet
1 mg PO HS Qty: 5 0RF
Discontinued
trazodone 50 mg Tablet
50 mg PO HS
clonazepam 0.5 mg Tablet
0.5 mg PO DAILY
Compound W 17 % Liquid
1 applic TOPICAL QPM
calcium carbonate [Tums] 200 mg calcium (500 mg) Tablet,Chewable
200 mg PO Q8HPRN PRN (Reason: GERD)
risperidone 1 mg Tablet
1 mg PO HS
bupropion HCl [Wellbutrin XL] 300 mg Tablet Extended Release 24 Hr
300 mg PO DAILY
Discharge Orders:
Discharge Patient (As Directed); Ordered 08/17/24
Ordered By: Madina Mcdonald
Discharge Date and Time
Print Language: GERMAN
[2024-08-17 12:19] LABS: COVID-19 Antigen Negative (Negative)
--- NOTE | 2024-08-17 12:36 | CM ---
Clinical faxed to [facility] [phone] .
Received a call from Tamiko Nolasco that pt is accepted to [facility] 14 floor rm [id number] A.
Covid request (done and negative )and ECT consent form and [address]no . Witnessed by CM .
Dr Moreno spoke with son and pt regarding going to [place] for ECT treatment.
IMM signed on chart.
Yobany son [phone] agrees with plan.
[facility] 14 floor
report [phone]
fax [phone]
DC To [facility] /[facility].
== END 2024-08-17 15:35 | DRG 885 ==
LOC: 3 WEST ACU 17:59
PROVIDERS: ADMITTING PHYSICIAN Internal Medicine; CONSULT PHYSICIAN Psychiatry & Neurology Psychiatry; EMERGENCY PHYSICIAN Student in an Organized Health Care Education/Training Program; FAMILY PHYSICIAN Internal Medicine
DX: F33.2 Major depressive disorder, recurrent severe without psychotic features (principal); E78.00 Pure hypercholesterolemia, unspecified; G47.00 Insomnia, unspecified; I10 Essential (primary) hypertension; K21.9 Gastro-esophageal reflux disease without esophagitis; R53.1 Weakness; R19.7 Diarrhea, unspecified; F41.9 Anxiety disorder, unspecified; Z79.899 Other long term (current) drug therapy; Z96.611 Presence of right artificial shoulder joint; Z96.652 Presence of left artificial knee joint; Z63.6 Dependent relative needing care at home; Z11.52 Encounter for screening for COVID-19; Z85.46 Personal history of malignant neoplasm of prostate
CPT/HCPCS: 70450; 80048; 80053; 81003; 82607; 82746; 83735; 84443; 85025; 85027; 86140; 87070; 87811; 93005; 97110; 97116; 97166; 97530; 99285

== ENCOUNTER 2024-10-03 06:59 | Outpatient (RCR) | payer MEDICARE, OTHER, SELFPAY | END 2024-10-03 23:59 | disposition home or self-care (01) | LOC: RPT 06:59 | PROVIDERS: ATTENDING PHYSICIAN Internal Medicine | DX: R26.89 Other abnormalities of gait and mobility (principal); Z73.6 Limitation of activities due to disability; M62.81 Muscle weakness (generalized); R26.2 Difficulty in walking, not elsewhere classified; R53.83 Other fatigue | CPT/HCPCS: 97162 ==

== ENCOUNTER 2025-01-05 01:03 | Emergency (ER) | payer MEDICARE, OTHER, SELFPAY ==
[2025-01-05 01:07] VITALS: BP 144/82
--- NOTE | 2025-01-05 01:20 | ED.GENMED ---
History of Present Illness
General
Chief Complaint: Head Injury
Source: patient
Time Seen by Provider: 01/05/25 01:09
History of Present Illness
History of Present Illness:
79-year-old male who got up to use the restroom, normally uses a walker but did not have 1 at this time, fell backwards and hit the back of his head on a chair. He was able to get back up and proceed to the bathroom. He noted that he was bleeding
for the posterior occiput, and called for help. He says at baseline he has poor balance and he denies any new symptoms such as dizziness, headache, neck pain, chest pain, palpitations, dyspnea, numbness, focal weakness, or other complaints.
Patient denies that this time. He is unclear his last tetanus.
Past History
Past History
ED Past Medical History: Cancer (Prostate cancer), GERD and Hypercholesterolemia
ED Past Surgical History: Orthopedic
Social History
Tobacco: Non-smoker
Alcohol: None
Drug: None
Personal:
Employment: Retired
Family History
Family History: Other
Phy Exam
Physical Exam
Physical Exam:
GENERAL: Alert , in no apparent distress
EYE: pupils equal and reactive, EOMI, no nystagmus
NECK: Supple, no significant adenopathy, no midline tenderness.
ENT: o/p clr, mmm.
CARDIAC: Regular rate and rhythm .
LUNGS: Clear breath sounds bilaterally, no acute respiratory distress, no wheezes/rales/rhonchi
ABDOMEN: Soft, without focal tenderness, no r/g, no cvat
NEUROLOGICAL: Alert and oriented, no focal neuro deficits
SKIN: Warm and dry, skin intact with the exception of a linear laceration noted the posterior occiput.
MUSCULOSKELETAL: No edema, well perfused.
PSYCH: Normal and appropriate interaction.
Course
Orders/Labs/Results
Orders:
Orders
01/05/25 01:20
Lidocaine/Epinephrine/Tetracai [Let Topical Anesthetic Gel] 3 ml .ROUTE .STK-MED ONE
01/05/25 01:23
Lidocaine/Epinephrine/Tetracai [Let Topical Anesthetic Gel] 3 ml TOPICAL NOW STA
Tetanus/Diphth/Acelpertussis [Adacel] 0.5 ml IM .ONCE ONE
Vital Signs
Initial and Last Documented VS:
Initial Vital Signs
Temp Pulse Resp BP Pulse Ox
97.5 F 72 20 144/82 99
01/05/25 01:07 01/05/25 01:07 01/05/25 01:07 01/05/25 01:07 01/05/25 01:07
Last Documented Vital Signs
Temp Pulse Resp BP Pulse Ox
97.5 F 72 14 138/81 98
01/05/25 01:07 01/05/25 02:09 01/05/25 02:09 01/05/25 02:09 01/05/25 02:09
Procedures
Laceration Closure
Head:
Status of Wound: clean
Size of Wound in cm: 3
Description of Wound Edges: sharp
Preparation: cleaned with saline
Anesthesia: Topical-LET
Revision/Debridement: routine- no revision
Type of Closure: single layer closure
Skin Closure Material: skin gabrielle
Number of sutures: 8
*Critical Care Note
Total Time (30-74mins, 75-104mins- exclusive of procedures): Not Applicable
Update Note
Update Note:
Patient presents to the Emergency Department with __fall
Number and Complexity of Problems Addressed at the Encounter
� Chronic conditions affecting care:
� Acute Exacerbation and/or Progression of Chronic Illness:
� Differential Diagnosis includes: But not limited to intracranial injury, abrasion, laceration, etc. etc.
Amount and/or Complexity of Data to be Reviewed and Analyzed
� I performed an independent evaluation of and my interpretation is:
EKG:
CT:
Xrays:
Laboratory Studies:
Other:
� Review of other/old records reveals:
� Clinical information was obtained by an independent historian:
� Prescriptions/Medications Considered but not given:
� Further testing considered but not performed: Did discussed with patient recommendation to obtain a head CT to rule out intracranial injury, he declines, understands risks of missed injury. Patient is not on anticoagulation,
denies headache, no focal neurosymptoms noted.
Risk of Complications and/or Morbidity or Mortality of Patient Management
� Social determinants of health affecting care:
� Discussion with other providers (PCP, Hospitalists, Consultants, etc):
� Escalation of care including admission/observation vs risk of discharge considered:
ED Attending Note
-
Portions of this chart may have been created with voice recognition software.� Occasional wrong word or��sound alike� substitutions may have occurred due to the inherent limitations of voice recognition software.
Discharge Plan
Departure
Patient Disposition: Home (Routine Discharge)
Date of Disposition: 01/05/25
Time of Disposition: 02:05
Patient with high blood pressure during this ER visit?: Yes
Condition: Good
Discharge Problem:
Laceration, Head injury
Instructions: Head Injury in Adults (DC), Laceration Repair With Gabrielle (DC), BLOOD PRESSURE
Prescriptions:
No Action
multivitamin 1 EACH tablet
1 ea PO HS
polyethylene glycol 3350 [Miralax] 17 gram Powder In Packet
17 g PO DAILYPRN PRN (Reason: CONSTIPATION)
atorvastatin [Lipitor] 10 mg Tablet
10 mg PO QPM
sertraline 100 mg Tablet
200 mg PO DAILY
pantoprazole [Protonix] 40 mg Tablet,Delayed Release (Dr/Ec)
40 mg PO BID
melatonin 5 mg Tablet
5 mg PO HSPRN PRN (Reason: SLEEP)
quetiapine 25 mg Tablet
50 mg PO HS Qty: 30 0RF
bupropion HCl 150 mg Tablet Extended Release 24 Hr
150 mg PO DAILY Qty: 30 0RF
clonazepam 1 mg Tablet
1 mg PO HS Qty: 5 0RF
Referrals:
Lauren Coburn MD [Family Provider] - Follow up in 1 week
Activity Restrictions/Additional Instructions:
YOUR GABRIELLE (8 IN TOTAL) NEED TO BE REMOVED IN 7-10 DAYS. IF YOU DEVELOP REDNESS/SWELLING/FEVER/DISCHARGE/PAIN, DIZZINESS, SEVERE HEADACHE, VOMITING, CHANGE IN VISION/SPEECH/BALANCE, OR OTHER WORRISOME SIGNS, GO TO THE ER IMMEDIATELY!
Interventions
Interventions:
*Risk Screen - Suicide Last Done: 01/05/25 01:07
*General Assessment Last Done: 01/05/25 01:07
*Neglect/Abuse Screening Last Done: 01/05/25 01:07
ED- Fall Risk Assessment Last Done: 01/05/25 01:07
*ED COVID-19 Vaccine History Last Done: 01/05/25 01:22
*Nursing Disposition Last Done: 01/05/25 03:47
ED-Musculoskeletal Assessment Last Done: 01/05/25 01:34
ED- Neurological Assessment Last Done: 01/05/25 01:34
ED-Skin Assessment Last Done: 01/05/25 01:34
Discharge Date and Time
Discharge Date/Time: 01/05/25 03:47
Print Language: SPANISH
--- NOTE | 2025-01-05 01:24 | EDRN ---
Pt got up to go to the bathroom, admits he did not have his balance, and he fell backwards hitting his head on a chair. Pt denies neck/back pain, loc, headache, n/v, visual disturbance, pain anywhere else. Pt uses a walker.
[2025-01-05] MEDS: ADACEL 0.5 ML IM (01:27)
[2025-01-05] MEDS: LET TOPICAL ANESTHETIC GEL 3 ML TOPICAL (01:29)
[2025-01-05 02:09] VITALS: BP 138/81
== END 2025-01-05 03:47 | disposition home or self-care (01) ==
LOC: EMR 01:03
PROVIDERS: EMERGENCY PHYSICIAN Emergency Medicine; FAMILY PHYSICIAN Internal Medicine
DX: S09.90XA Unspecified injury of head, initial encounter (principal); S01.01XA Laceration without foreign body of scalp, initial encounter; W18.39XA Other fall on same level, initial encounter; Z23 Encounter for immunization; R26.89 Other abnormalities of gait and mobility; K21.9 Gastro-esophageal reflux disease without esophagitis; E78.00 Pure hypercholesterolemia, unspecified; Z85.46 Personal history of malignant neoplasm of prostate; R03.0 Elevated blood-pressure reading, without diagnosis of hypertension
CPT/HCPCS: 99283; 12002; 90471; 90715

== ENCOUNTER → 2025-01-29 11:28 | Outpatient (REF) | payer MEDICARE, OTHER, SELFPAY ==
[2025-01-29 11:55] LABS: % Eosinophils 3.3 % (0-6); % Immature Granulocytes 0.3 % (0-0.5); % Lymphocytes 32.8 % (20.5-51.1); % Monocytes 12.1 % (1.7-9.3); % Neutrophils 50.5 % (42.2-75.2); Absolute Basophils 0.1 10^3/uL (0-0.2); Absolute Eosinophils 0.3 10^3/uL (0-0.7); Absolute Lymphocytes 2.6 10^3/uL (1.2-3.4); Absolute Monocytes 0.9 10^3/uL (0.1-0.6); Absolute Neutrophils 3.9 10^3/uL (1.4-6.5); Hematocrit 39.5 % (39.0-52.0); Hemoglobin 13.2 g/dL (13.0-18.0); Mean Corp Hgb Conc. 33.4 g/dL (33.0-37.0); Mean Corpuscular Hgb 31.2 pg (27.0-31.0); Mean Corpuscular Volume 93.4 fL (80.0-94.0); Mean Platelet Volume 11.2 fL (7.4-10.4); Nucleated Red Blood Cells % 0 % (-); Platelet Count 191 10^3/uL (130-400); Red Blood Cell Count 4.23 10^6/uL (4.70-6.10); Red Cell Dist. Width 14.4 % (11.5-14.5); White Blood Cell Count 7.8 10^3/uL (4.8-10.8)
[2025-01-29 12:05] LABS: ALT (SGPT) 146 U/L (0-50); AST (SGOT) 63 U/L (17-59); Albumin 3.8 g/dl (3.5-5.0); Alkaline Phosphatase 56 U/L (38-126); Blood Urea Nitrogen 24 mg/dl (9-20); Calcium 9.6 mg/dl (8.4-10.2); Carbon Dioxide 30 mmol/L (22-30); Chloride 102 mmol/L (98-107); Glucose 84 mg/dl (70-99); HDL Cholesterol 51 mg/dl; LDL Cholesterol, Calculated 75 mg/dl; Potassium 4.4 mmol/L (3.5-5.1); Sodium 137 mmol/L (135-145); Total Bilirubin 0.6 mg/dl (0.2-1.3); Total Cholesterol 137 mg/dl (50-199); Total Protein 6.6 g/dl (6.3-8.2); Triglyceride 59 mg/dl (10-149); Very Low Density Lipoprotein 11 mg/dl (0-30); eGFR > 60.00
[2025-01-29 12:18] LABS: Free T4 0.97 ng/dl (0.78-2.19)
[2025-01-29 12:32] LABS: TSH 1.79 uIU/ml (0.47-4.68)
== END ==
LOC: OLABWPC 11:28
PROVIDERS: ATTENDING PHYSICIAN Internal Medicine
DX: E78.5 Hyperlipidemia, unspecified (principal); K21.9 Gastro-esophageal reflux disease without esophagitis
CPT/HCPCS: 36415; 80053; 80061; 84439; 84443; 85025

== ENCOUNTER → 2025-02-02 09:52 | Outpatient (REF) | payer MEDICARE, OTHER, SELFPAY | LOC: MRI 3T 09:52 | PROVIDERS: ATTENDING PHYSICIAN Specialist; FAMILY PHYSICIAN Internal Medicine | DX: F32.A Depression, unspecified (principal) | CPT/HCPCS: 70551 ==

== ENCOUNTER → 2025-02-18 12:02 | Outpatient (REF) | payer MEDICARE, OTHER, SELFPAY ==
[2025-02-18 13:49] LABS: PSA, Total - Diagnostic 6.64 ng/ml (0.0-4.0)
[2025-02-19 10:38] LABS: ALT (SGPT) 169 U/L (0-50); AST (SGOT) 54 U/L (17-59); Albumin 4.2 g/dl (3.5-5.0); Alkaline Phosphatase 57 U/L (38-126); Direct Bilirubin 0.2 mg/dl (0.0-0.4); Total Bilirubin 0.6 mg/dl (0.2-1.3); Total Protein 6.9 g/dl (6.3-8.2)
== END ==
LOC: OLABWPC 12:02
PROVIDERS: ATTENDING PHYSICIAN Radiology Radiation Oncology; FAMILY PHYSICIAN Internal Medicine
DX: C61 Malignant neoplasm of prostate (principal)
CPT/HCPCS: 36415; 80076; 84153

== ENCOUNTER 2025-05-25 09:10 | Emergency (ER) | payer MEDICARE, OTHER, SELFPAY ==
[2025-05-25] VITALS (9 sets, daily range): BP systolic 124–134; BP diastolic 59–108; PULSE 85; O2SAT 96; BMI 25.1
[2025-05-25 09:44] LABS: % Basophils 0.6 % (0-2); % Eosinophils 1.5 % (0-6); % Immature Granulocytes 0.3 % (0-0.5); % Lymphocytes 19.2 % (20.5-51.1); % Monocytes 11.9 % (1.7-9.3); % Neutrophils 66.5 % (42.2-75.2); Absolute Basophils 0.1 10^3/uL (0-0.2); Absolute Eosinophils 0.2 10^3/uL (0-0.7); Absolute Lymphocytes 2.4 10^3/uL (1.2-3.4); Absolute Monocytes 1.5 10^3/uL (0.1-0.6); Absolute Neutrophils 8.3 10^3/uL (1.4-6.5); Hematocrit 40.9 % (39.0-52.0); Mean Corp Hgb Conc. 34.2 g/dL (33.0-37.0); Mean Corpuscular Hgb 31.7 pg (27.0-31.0); Mean Corpuscular Volume 92.5 fL (80.0-94.0); Mean Platelet Volume 10.6 fL (7.4-10.4); Nucleated Red Blood Cells % 0 % (-); Platelet Count 207 10^3/uL (130-400); Red Blood Cell Count 4.42 10^6/uL (4.70-6.10); Red Cell Dist. Width 13.2 % (11.5-14.5); White Blood Cell Count 12.4 10^3/uL (4.8-10.8)
--- NOTE | 2025-05-25 09:55 | EDRN ---
Mable COTO in room w/ pt.
--- NOTE | 2025-05-25 09:55 | ED.GENMED ---
History of Present Illness
General
Chief Complaint: Weakness
Source: patient and ambulance crew
Time Seen by Provider: 05/25/25 09:41
History of Present Illness
History of Present Illness:
80-year-old male with past medical history of prostate cancer, hyperlipidemia, GERD, anxiety and depression presenting to the emergency department for evaluation with EMS after he reports difficulty ambulating secondary to generalized weakness,
reportedly has had multiple near falls over the last couple of days despite using his walker to ambulate with. At baseline, patient uses his walker. He denies any other symptoms at present time including fevers or recent illnesses, URI-like
symptoms, urinary symptoms, bowel changes, chest pain, shortness of breath, back or flank pain, nausea or vomiting. Patient notes that he is on multiple medications for his prostate cancer and believes he is supposed to be undergoing procedure but
states not sure when this procedure will ultimately take place. He was diagnosed with the prostate cancer around 1 year ago.
Past History
Past History
ED Past Medical History: Cancer (Prostate cancer), GERD, Hypercholesterolemia and Psychiatric
ED Past Surgical History: Orthopedic
Social History
Tobacco: Non-smoker
Alcohol: None
Drug: None
Personal:
Living: with family
Employment: Retired
Family History
Family History: Other
Review of Systems
Review of Systems
All Other Systems: ROS reviewed and negative except as documented in HPI and ROS
Phy Exam
Physical Exam
Physical Exam:
GENERAL: Alert , in no apparent distress , Appears older than stated age
EYE: clear conjunctiva b/l
HEAD: NCAT
ENT: o/p clr, mmm.
CARDIAC: Regular rate and rhythm .
LUNGS: Clear breath sounds bilaterally, no acute respiratory distress, no wheezes/rales/rhonchi
ABDOMEN: Soft, without focal tenderness, no r/g, no cvat
NEUROLOGICAL: Alert and oriented x 3, moves all extremities without any difficulty, sensory is grossly intact to light touch, no dysmetria
SKIN: Warm and dry, skin intact.
MUSCULOSKELETAL: No edema, well perfused.
PSYCH: Normal and appropriate interaction.
Scores
Heart Failure Risk
Heart Failure Risk Score: Not Applicable
Heart Score for Chest Pain Patients
STEMI patient?: Not applicable
Withdrawal Assessment of Alcohol
Withdrawal Assessment Completed?: Not applicable
Course
Orders/Labs/Results
Orders:
Orders
05/25/25 09:23
Cardiac Monitoring- Treatment ONCE
IV Insert/Care/Rem.- Treatment PRN
05/25/25 09:36
Complete Blood Count/With Diff Urgent
Comprehensive Metabolic Panel Urgent
Magnesium Urgent
Comment: ADD ON
Troponin I Urgent
05/25/25 09:37
Electrocardiogram (*1) Urgent
Reason for Study: Chest Pain
EKG- Treatment ONCE
05/25/25 09:54
CT Head W/o Iv Contrast Urgent
Comment:
Reason For Exam: weakness, difficulty walking, prostate cancer
05/25/25 09:55
Add On- LAB Urgent
Tests Added?: mag
05/25/25 10:28
COVID-19 Antigen Urgent
Source: Nasal Swab
05/25/25 11:10
Physical Therapy Consult [Pt Eval And Treat] Urgent
Treatment: uses walker at baseline, falling
Activity Level: Ambulate
05/25/25 11:21
Urinalysis Reflex To Culture Urgent
Date Specimen was Collected: 05/25/25
Time Specimen was Collected: 11:20
Urine Microscopic Reflex Cult Urgent
Urine Culture Urgent
ANYA Source: U
Specimen Description:
Date Specimen was Collected: 05/25/25
Time Specimen was Collected: 11:20
05/25/25 12:16
Case Management Consult ONCE
Case Management Consult: VN/Home Care
Abnormal Lab Results
05/25/25 05/25/25
09:36 11:21
WBC 12.4 H 10^3/uL
(4.8-10.8)
RBC 4.42 L 10^6/uL
(4.70-6.10)
MCH 31.7 H pg
(27.0-31.0)
MPV 10.6 H fL
(7.4-10.4)
Absolute Neuts (auto) 8.3 H 10^3/uL
(1.4-6.5)
Absolute Monos (auto) 1.5 H 10^3/uL
(0.1-0.6)
Lymphocytes % 19.2 L %
(20.5-51.1)
Monocytes % 11.9 H %
(1.7-9.3)
Glucose 100 H mg/dl
(70-99)
Leukocyte Esterase Rfl 1+ A
(Negative)
Urine Bacteria (Reflex) Few A
(Negative)
05/25/25 09:36
05/25/25 09:36
Vital Signs
Initial and Last Documented VS:
Initial Vital Signs
BP
134/108
05/25/25 09:12
Last Documented Vital Signs
Temp Pulse Resp BP Pulse Ox
98.7 F 86 16 128/80 97
05/25/25 09:14 05/25/25 12:41 05/25/25 12:41 05/25/25 12:41 05/25/25 12:41
MDM/Problems Addressed
Differential Diagnosis Includes:
- Electrolyte imbalance
- Anemia
- Deconditioning
- Progression of malignancy
- Infectious etiologies considered however less likely given lack of symptoms
- Intracranial bleeding/CVA
- Renal dysfunction
MDM/Problems Addressed:
80-year-old male presenting to the ER for evaluation of generalized weakness and multiple near falls despite using his walker to ambulate. Patient without any focal or lateralizing symptoms here and is otherwise hemodynamically stable. Will check
labs, urine, CT of the head. Based off workup will consider PT and case management consult for potential placement if patient not able to ambulate due to his fall risk.
Chronic conditions affecting care: Cancer
*Pulse Oximetry
SaO2: 95
Oxygen Mode of Delivery: Room air
Patient hypoxic: no
*Critical Care Note
Total Time (30-74mins, 75-104mins- exclusive of procedures): Not Applicable
Data Reviewed
Review of Other/Old Records Reveals: Labs, Records and Radiology Studies (MRI in January of this year with findings consistent with small vessel ischemic disease)
Comment
Comment:
Patient seen by physical therapy was able to ambulate with a walker at his baseline, able to go to the bathroom twice as well. Will order case management consult to see if there would be able to arrange patient for home therapy or further care at
[place] as needed. Anticipate discharge home
Patient Management
Escalation/DeEscalation of care consider admission/obs:
Patient was able to ambulate using walker with physical therapy with no assistance other than the walker as well as was able to get from his bed to the bathroom unassisted. Patient without current signs of infection although he did have 1+
leukocyte 6-10 WBCs on his urine. Given his lack of urinary symptoms will wait for urine culture. Patient had case management consult who was able to arrange for visiting nurse and home PT. Patient otherwise stable for discharge home. Son to
take patient back to his living facility.
ED Attending Note
-
Portions of this chart may have been created with voice recognition software.� Occasional wrong word or��sound alike� substitutions may have occurred due to the inherent limitations of voice recognition software.
Discharge Plan
Departure
Patient Disposition: Assisted Living
Date of Disposition: 05/25/25
Time of Disposition: 12:40
Patient with high blood pressure during this ER visit?: No
Discharge Problem:
Generalized weakness
Instructions: Generalized Weakness (DC)
Prescriptions:
No Action
multivitamin 1 EACH tablet
1 ea PO HS
polyethylene glycol 3350 [Miralax] 17 gram Powder In Packet
17 g PO DAILYPRN PRN (Reason: CONSTIPATION)
atorvastatin [Lipitor] 10 mg Tablet
10 mg PO QPM
sertraline 100 mg Tablet
200 mg PO DAILY
pantoprazole [Protonix] 40 mg Tablet,Delayed Release (Dr/Ec)
40 mg PO BID
melatonin 5 mg Tablet
5 mg PO HSPRN PRN (Reason: SLEEP)
quetiapine 25 mg Tablet
50 mg PO HS Qty: 30 0RF
bupropion HCl 150 mg Tablet Extended Release 24 Hr
150 mg PO DAILY Qty: 30 0RF
clonazepam 1 mg Tablet
1 mg PO HS Qty: 5 0RF
Referrals:
Sonja Coburn CRNP [Family Provider, Family Practice]
Interventions
Interventions:
*Risk Screen - Suicide Last Done: 05/25/25 09:18
*General Assessment Last Done: 05/25/25 09:18
*Neglect/Abuse Screening Last Done: 05/25/25 09:18
*ED- Fall Risk Assessment Last Done: 05/25/25 09:18
*ED COVID-19 Vaccine History Last Done: 05/25/25 09:18
*Nursing Disposition Last Done: 05/25/25 12:55
ED- Cardiac Assessment Last Done: 05/25/25 09:24
ED- Neurological Assessment Last Done: 05/25/25 09:24
ED- Pulmonary Assessment Last Done: 05/25/25 09:24
Discharge Date and Time
Discharge Date/Time: 05/25/25 12:55
Print Language: INDONESIAN
[2025-05-25 09:57] LABS: ALT (SGPT) 43 U/L (0-50); AST (SGOT) 25 U/L (17-59); Albumin 4.1 g/dl (3.5-5.0); Alkaline Phosphatase 67 U/L (38-126); Blood Urea Nitrogen 14 mg/dl (9-20); Calcium 9.1 mg/dl (8.4-10.2); Carbon Dioxide 23 mmol/L (22-30); Chloride 106 mmol/L (98-107); Estimated Creatinine Clearance 70 ml/min; Glucose 100 mg/dl (70-99); Potassium 4.2 mmol/L (3.5-5.1); Sodium 136 mmol/L (135-145); Total Bilirubin 0.9 mg/dl (0.2-1.3); Total Protein 7.1 g/dl (6.3-8.2); eGFR > 60.00
[2025-05-25 10:08] LABS: Troponin I < 0.012 ng/ml
[2025-05-25 10:12] LABS: Magnesium 2.3 mg/dl (1.6-2.3)
--- NOTE | 2025-05-25 10:30 | EDRN ---
Mable COTO said pt could have a kevin ashly and was given a cup of kevin ashly.
[2025-05-25 10:54] LABS: COVID-19 Antigen Negative (Negative)
--- NOTE | 2025-05-25 11:15 | EDRN ---
Mable Razo PA in room w/ pt and requested urine spec in urinal then updated pt's son.
--- NOTE | 2025-05-25 11:28 | EDRN ---
Urine spec obtained and sent
--- NOTE | 2025-05-25 11:38 | EDRN ---
Pt awaiting results of CT and PT eval. Fitzpatrick placed in room.
--- NOTE | 2025-05-25 11:48 | EDRN ---
PT in room w/ pt.
[2025-05-25 11:56] LABS: Urine Albumin Negative (Neg - Trace); Urine Bilirubin Negative (Negative); Urine Character Clear (Clear); Urine Color Yellow; Urine Glucose Negative (Negative); Urine Ketone Negative (Negative); Urine Leukocyte 1+ (Negative); Urine Nitrite Negative (Negative); Urine Occult Blood Negative (Negative); Urine Urobilinogen Negative (Neg - 1+)
[2025-05-25 12:21] LABS: Urine Bacteria Few (Negative); Urine Red Blood Cell 0-2 /HPF (0-2); Urine Squamous Cell 0-2 /LPF (Few)
--- NOTE | 2025-05-25 12:28 | EDRN ---
Mable COTO asked for pt if he could eat and said yes and pt given a boxed lunch and is sitting on side of stretcher eating at this time.
--- NOTE | 2025-05-25 12:36 | EDRN ---
Case Management in room w/ pt at this time.
--- NOTE | 2025-05-25 12:44 | CM ---
manager security reviewed patient's chart and met with patient and patient lives at [facility] on 3rd floor, patient is independent with adl's and uses a walker occasionally with ambulation, patient is on personal care at [place], and plan is
for patient to return to [place] on Personal care and have visiting nurses from [facility], referral sent to [facility].
PCP: Sonja Cobunr.
Plan; Back to [facility] on personal Care, and [facility], son Solo to transport.
== END 2025-05-25 12:55 ==
LOC: EMR 09:10
PROVIDERS: Emergency Medicine; Physician Assistant Medical; EMERGENCY PHYSICIAN Student in an Organized Health Care Education/Training Program; FAMILY PHYSICIAN Nurse Practitioner Family
DX: R53.1 Weakness (principal); R26.2 Difficulty in walking, not elsewhere classified; Z11.52 Encounter for screening for COVID-19; E78.00 Pure hypercholesterolemia, unspecified; C61 Malignant neoplasm of prostate; K21.9 Gastro-esophageal reflux disease without esophagitis; F41.9 Anxiety disorder, unspecified; F32.A Depression, unspecified
CPT/HCPCS: 99285; 70450; 80053; 81003; 81015; 83735; 84484; 85025; 87086; 87811; 93005

== ENCOUNTER → 2025-08-14 11:10 | Outpatient (REF) | payer MEDICARE, OTHER, SELFPAY ==
[2025-08-14 13:41] LABS: PSA, Total - Diagnostic 1.87 ng/ml (0.0-4.0)
== END ==
LOC: OLABWPC 11:10
PROVIDERS: ATTENDING PHYSICIAN Radiology Radiation Oncology
DX: R97.21 Rising PSA following treatment for malignant neoplasm of prostate (principal)
CPT/HCPCS: 36415; 84153

== ENCOUNTER → 2025-10-22 09:57 | Outpatient (REF) | payer MEDICARE, OTHER, SELFPAY ==
[2025-10-22 12:14] LABS: Hematocrit 41.4 % (39.0-52.0); Hemoglobin 13.7 g/dL (13.0-18.0); Mean Corp Hgb Conc. 33.1 g/dL (33.0-37.0); Mean Corpuscular Volume 93.2 fL (80.0-94.0); Nucleated Red Blood Cells % 0 % (-); Platelet Count 218 10^3/uL (130-400); Red Cell Dist. Width 13.7 % (11.5-14.5)
[2025-10-22 12:33] LABS: ALT (SGPT) 38 U/L (0-50); AST (SGOT) 27 U/L (17-59); Albumin 3.8 g/dl (3.5-5.0); Alkaline Phosphatase 52 U/L (38-126); Blood Urea Nitrogen 18 mg/dl (9-20); Calcium 9.7 mg/dl (8.4-10.2); Carbon Dioxide 30 mmol/L (22-30); Chloride 104 mmol/L (98-107); Glucose 91 mg/dl (70-99); LDH 264 U/L (120-246); Potassium 4.6 mmol/L (3.5-5.1); Sodium 136 mmol/L (135-145); Total Protein 6.8 g/dl (6.3-8.2); eGFR > 60.00
== END ==
LOC: OLABWIL 09:57
PROVIDERS: ATTENDING PHYSICIAN Internal Medicine
DX: Z85.820 Personal history of malignant melanoma of skin (principal); I10 Essential (primary) hypertension
CPT/HCPCS: 36415; 80053; 83615; 85025